=== PATIENT | female | born 1975 | race African-American/Black ===

== ENCOUNTER 2017-01-12 10:10 | Emergency (ER) | payer OTHER ==
[~2017-01-12] VITALS: Ht 162.6 cm; Wt 100.2 kg
[~2017-01-12 10:10] MED LIST: ACETAMINOPHEN-1 EAC1 PO; ALPRAZOLAM 0.0.25 M1 PO; ALPRAZOLAM 0.50.5 MG; ALPRAZOLAM 0.50.5 MG PO; ALPRAZOLAM ER1 MG PO; AMBIEN 5 MG TABL5 M1 PO; ASPIR 8181 MG PO; ATIVAN1 MG PO; CIPROFLOXACIN500 M1 PO; COLACE 100 MG100 MG PO; ENDOCET 5-3251 EACH PO; FLEXERIL PO; HEPARIN SO5000 UNIT1 SUBQ; IBUPROFEN 600600 M1 PO; IBUPROFEN 800800 M1 PO; LAMICTAL100 MG PO; LIORESAL 10 MG10 MG; MEDROXYPROGESTER5 MG; MIRALAX255 GM PO; MOBIC15 MG; MOOD STABILIZER; NAPROSYN500 MG PO; NEURONTIN 300300 M1; NOHOMEMEDICATIONS; NORCO 5-325 TA1 EACH PO; ONDANSETRON HCL4 M2; OXYCONTIN10 M1 PO; PENICILLIN V P500 MG PO; PENICILLIN VK250 MG PO; PERCOCET 5-3251 EACH PO; PERCOCET 7.5-31 EACH PO; PHENERGAN 25 MG25 M1 PO; PREDNISONE 20 M20 MG PO; SEROQUEL 100 M100 M2 PO; SEROQUEL XR 30300 M1 PO; SEROQUEL200 MG; TYLENOL325 MG PO; ULTRAM 50MG TAB50 MG PO; WELLBUTRIN XL150 M1 PO; WELLBUTRIN XL300 M1 PO; XANAX 0.5 MG0.5 M1 PO; XANAX 1 MG TABLE1 MG PO; XANAX1 MG; ZOFRAN ODT4 MG PO; ZOFRAN4 MG PO
[2017-01-12 11:40] LABS: URINE BILIRUBIN NEGATIVE (Negative); URINE BLOOD 2+ (Negative); URINE COLOR YELLOW; URINE GLUCOSE-RANDOM* NEGATIVE (Negative); URINE KETONES NEGATIVE (Negative); URINE NITRITE NEGATIVE (Negative); URINE PROTEIN (DIPSTICK) NEGATIVE (Negative); URINE UROBILINOGEN 0.2 E.U./dl (0.2-1.0)
[2017-01-12 12:33] LABS: CASTS None Seen /LPF (None Seen); CRYSTALS None Seen /LPF (None Seen); SQUAMOUS 4-10 Moderate /LPF (0-3); URINE RBC 3-10 Few /HPF (0-2); URINE WBC 6-15 Few /HPF (0-5)
[2017-01-12 12:34] LABS: BACTERIA None Seen /HPF (None Seen)
[2017-01-12] MEDS ORDERED: KEFLEX500 MG PO (12:37)
[2017-01-12 14:28] VITALS: BP 127/89
== END 2017-01-12 14:30 | disposition home or self-care (01) ==
LOC: ER 10:10
PROVIDERS: Physician Assistant
DX: T83.038A Leakage of other urinary catheter, initial encounter (principal); N39.0 Urinary tract infection, site not specified; E78.00 Pure hypercholesterolemia, unspecified; F17.210 Nicotine dependence, cigarettes, uncomplicated; Z88.6 Allergy status to analgesic agent; Z88.5 Allergy status to narcotic agent; Z88.8 Allergy status to other drugs, medicaments and biological substances; X58.XXXA Exposure to other specified factors, initial encounter; Y93.89 Activity, other specified; Y92.89 Other specified places as the place of occurrence of the external cause; Y99.8 Other external cause status

== ENCOUNTER 2017-09-08 01:30 | Emergency (ER) | payer OTHER ==
[~2017-09-08] VITALS: Ht 162.6 cm; Wt 88.9 kg
[~2017-09-08 01:30] MED LIST changes: +KEFLEX500 MG PO
[2017-09-08 07:27] VITALS: BP 140/87
[2018-01-29] MEDS ORDERED: ALPRAZOLAM 0.50.5 M1 PO (10:02)
[2018-01-29] MEDS ORDERED: KEPPRA 500 MG500 M1 PO (10:02)
== END 2017-09-08 07:20 | disposition home or self-care (01) ==
LOC: ER 01:30
DX: Z76.0 Encounter for issue of repeat prescription (principal); G89.29 Other chronic pain; G82.20 Paraplegia, unspecified; G37.3 Acute transverse myelitis in demyelinating disease of central nervous system; E78.00 Pure hypercholesterolemia, unspecified; F17.210 Nicotine dependence, cigarettes, uncomplicated; Z88.6 Allergy status to analgesic agent; Z88.5 Allergy status to narcotic agent; Z88.8 Allergy status to other drugs, medicaments and biological substances

== ENCOUNTER 2017-10-21 10:36 | Inpatient (IN) | payer OTHER ==
[~2017-10-21] VITALS: Ht 162.6 cm; Wt 99.0 kg
--- NOTE | ~2017-10-21 | HC ---
[facility] [place] [address] CONSULTATION Name: ISRRAEL CALDWELL Room #: 423-1 [facility] IN M.R.#: [id number] Admission: 10/21/17 Attend Phys: Rowan Scales MD Discharge: 10/30/17 Date of : 71 Report #: [id number] THIS REPORT FOR: //name// CC: Eduardo Scales DATE OF SERVICE: 10/22/2017 HISTORY OF PRESENT ILLNESS: This is a 42-year-old female patient who indicates that she was in [facility] 2 years ago. Her symptoms were that she became paraplegic and lost control over the bladder. She was diagnosed with transverse myelitis. She claims that no neurologist or neurosurgeon saw her at that time. That would be very unusual. She indicates she has been same for about 2 years and she has an appointment with a [facility] neurologist for transverse myelitis. I do not have any record from [facility] on this patient. She has multiple pain management problems and she goes to pain management for that. REVIEW OF SYSTEMS: Indicate that she has a history of transverse myelitis. She claims she has a transverse myelitis from L1-L5. The whole history does not make sense because there is no spinal cord at L5. She is on multiple pain medications. She is also on multiple psychiatric medications. All of it becomes very difficult to evaluate this patient. I carried out the 14-point review of system the best I can in this patient and this was a relevant 14-point review of systems. PAST MEDICAL HISTORY: Positive for transverse myelitis. FAMILY HISTORY: Negative for any early age stroke. SOCIAL HISTORY: She does not smoke or drink alcohol. PHYSICAL EXAMINATION: The patient's examination indicate she is alert and responsive. Her speech, concentration, fund of knowledge and memory is at her baseline. Cranial nerve examination 2-12 is unremarkable. She has normal strength, sensation and reflexes in both upper extremities. She has no movement and no sensation in the lower extremities, but the best I can tell reflexes may be present slightly. She does not relax to tell for sure. There is no papilledema. She has wounds in the lower extremities. Pulses are difficult to feel. She is a well-built individual who does not have any dysmorphic features of eyes, ears and face. Cardiac examination appears unremarkable. She does not appear to have any respiratory difficulty. Blood pressure is 106/63, respirations 18, pulse is 109 and temperature is 98.6. LABORATORY DATA: Indicated normal white count. [address] [address] CONSULTATION Name: ISRRAEL CALDWELL Room #: [address] [place] [address]#: [id number] Admission: 10/21/17 Attend Phys: Rowan Scales MD Discharge: 10/30/17 Date of : 71 Report #: [id number] IMPRESSION: Neurological consultation is requested to evaluate the patient for transverse myelitis. I do not have any of her record from [facility]. I will ask for the record. It will be very unusual if she did not see any neurologist there. Furthermore, she has an appointment with a neurologist in a tertiary care center where these patients should be managed. I encouraged her to keep that appointment. She also says that she has transverse myelitis from L1-L5. That history is wrong because there is no spinal cord at L5 until she has tethered cord. So this whole history is very unusual. I will await further records from [facility] and my recommendation is that she should keep her appointment with the neurologist at tertiary care center. Thank you very much for this referral. <ELECTRONICALLY SIGNED> By: Soham Martins MD 11/01/17 1145 1553 0408 Soham Martins MD /nt
--- NOTE | ~2017-10-21 | HC ---
[facility] [place] [address] CONSULTATION Name: ISRRAEL CALDWELL Room #: 423-1 ADM IN M.R.#: [id number] Admission: 10/21/17 Attend Phys: Rowan Scales MD Discharge: Date of : 71 Report #: [id number] THIS REPORT FOR: //name// CC: Eduardo Scales CHIEF COMPLAINT: Right heel wound. HISTORY OF PRESENT ILLNESS: The patient is a pleasant 42-year-old female seen today for evaluation of her right lower extremity. The patient reports a history of heel ulcerations and wounds. She developed a neuropathic pressure induced ulcer and a history of transverse myelitis and paraplegia of several years' duration. The patient reports that she lives at home alone with a caregiver. She has a motorized wheelchair and has recently had been admitted in a rehabilitation facility and then discharged to home. The patient has been using lower extremity boots to try and protect her soft tissues and has had hospitalizations at other hospitals and more recently presented to the Emergency Room at [facility]. She has seen a variety of physicians for wound care management. PAST MEDICAL HISTORY: Significant for paraplegia and transverse myelitis, obesity, neurogenic bladder with indwelling Doran, history of lumbar spondylosis, history of kidney nephrolithiasis, hypercholesterolemia and tobaccoism. ALLERGIES: PER THE CHART, VICODIN, LORAZEPAM, MORPHINE, OMEPRAZOLE, OXYCODONE AND COMPAZINE. CURRENT MEDICATIONS: Please see current MAR. PHYSICAL EXAMINATION: GENERAL: The patient is alert, oriented, answering questions appropriately and is very pleasant. VITAL SIGNS: Most recent vitals: Temperature 36.6, pulse 71, respirations 20, BP 128/80 and weight 99 kilos. EXTREMITIES: Examination of the right lower extremity reveals skin breakdown to the level of the dermis about the heel. The dressing had been removed, yellowish discharge is noted in this area. There appears to be no obvious breakthrough or breakdown of the dermis into the subcutaneous fascial tissues. Her Achilles does not appear exposed. No exposed bone is noted. This extends more distally based on to the plantar surface of the foot. Mild swelling is noted of the foot. She reports little if any sensation to light touch and has no intact motor function in the lower extremities. She does have some mild intermittent muscular activity that is spontaneous. LABORATORY DATA: Reveals a white count of 7.2. Foot cultures positive for Klebsiella pneumoniae and MRSA. Blood cultures were read as no growth. [address] [address] CONSULTATION Name: ISRRAEL CALDWELL Room #: 423-1 [facility] IN [facility]#: [id number] Admission: 10/21/17 Attend Phys: Rowan Scales MD Discharge: Date of : 71 Report #: [id number] IMAGING: Three views of the foot reveals diffuse swelling. No obvious findings of osteomyelitis. MRI of the foot reveals chronic osteomyelitis of the posterior process of the calcaneus with a large area of involucrum, surrounding sequestrum. The chronic osteomyelitis measures 2.8 cm x 1.7 cm x 2.2. Lower extremity Doppler is read as no significant arterial occlusive disease. IMPRESSION: 1. 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 2. MRSA and Klebsiella pneumoniae positive wound. PLAN: The patient is initially been seen by Infectious Disease as well as the wound team. We have reviewed her pressure-induced ulcers and the need to be diligent with protection of her soft tissues especially in the lower extremities and any seated weightbearing type surface to reduce this in the future. We have discussed treatment of her skin breakdown could be as simple as trying to debride the wound and ulcer versus a more extensive surgery, which could entail removal of portion of the calcaneus that is suspected to be infected. We discussed with more removal of the calcaneus. We discussed with her calcaneal osteomyelitis that this can always persist or be resistant to treatment. We discussed that if she had more difficulty in this in the future or if the infection spreads that one may need to consider amputation in the future. Hopefully, this can be avoided. Discussed with the patient that we could consider this operative debridement on Sunday afternoon and would like to discuss this further with Infectious Disease as well. They can continue to manage her antibiotic course and intraoperative cultures could be obtained as well. Questions were encouraged and all were answered. The patient demonstrated an understanding of her treatment choices and wished to proceed with an operative debridement of her foot. <ELECTRONICALLY SIGNED> By: Ganga Bay MD 10/26/17 1514 1352 0055 Ganga Bay MD /nt
--- NOTE | ~2017-10-21 | S ---
[facility] [place] [address] SURGICAL PATH RPT PROCEDURE Name: STEPHIE CALDWELL Room #: 423-1 ADM IN M.R.#: [id number] Admission: 10/21/17 Date of : 71 Discharge: Report #: [id number] Path Case #: [id number] PATHOLOGY REPORT COLLECTION DATE: 10/26/2017 RECEIVED DATE: 10/29/2017 SUBMITTING PHYS: Dr. Ganga Matthew OTHER PHYS: Dr. Rowan Padilla SPECIMEN(S) RECEIVED: A.Bone right calcaneus * * * * * * * * * * * * FINAL DIAGNOSIS: Bone right calcaneus, excision: - Reactive and remodeled bone parenchyma with few plasma cells within fibrotic marrow space compatible with chronic inflammation. (IUV:db; 10/30/2017) PATHOLOGIST: Vicky Severino M.D. REPORT ELECTRONICALLY SIGNED BY: Vicky Severino M.D. DATE/TIME: 10/30/2017 15:41 * * * * * * * * * * * * GROSS PATHOLOGY: The specimen is received in formalin labeled "Stephie Caldwell bone right calcaneus". Received is a dome-shaped segment of light carson bone with a slight amount of attached white-carson fibrous tissue measuring 4.7 x 3.4 x 2.2 cm in greatest dimensions. The specimen is submitted representatively in cassette A1, following decalcification. (CAA; 10/29/2017) CLINICAL HISTORY: Right heel wound INITIAL CPT CODE(S): A; 95252, 66211 Professional services performed by [facility] at [facility] [address] [place], [place] [address] Technical services performed by [facility] at [address] [place] [address], [address] [address]. [facility] [address] [place] [address] SURGICAL PATH RPT PROCEDURE Name: STEPHIE CALDWELL Room #: 423-1 ADM IN M.R.#: [id number] Admission: 10/21/17 Date of : 71 Discharge: Report #: [id number] Path Case #: [id number] [facility] [address] [address] PHONE: [phone] DIRECTOR: Federico Hdez M.D. * * * END OF REPORT * * *
--- NOTE | ~2017-10-21 | HC ---
[facility] [place] [address] CONSULTATION Name: ISRRAEL CALDWELL Room #: 423-1 ADM IN M.R.#: [id number] Admission: 10/21/17 Attend Phys: Rowan Scales MD Discharge: Date of : 71 Report #: [id number] THIS REPORT FOR: //name// CC: Eduardo Scales DATE OF SERVICE: 10/21/2017 REASON FOR CONSULTATION: Significant right heel neuropathic ulcer and multiple wounds of anterior thighs and left flank in a patient with transverse myelitis and paraplegia. HISTORY OF PRESENT ILLNESS: The patient is an unfortunate 42-year-old woman who lives at home with a motorized wheelchair and several health care supporters and home health, who had been in a rehabilitation facility for approximately the last month, had been recently discharged home. There is some discontinuity in her home care and the patient's wounds of the lower body, which deteriorated. She presented to the Emergency Room at [facility] and was found to have multiple wounds of her thighs, left flank, foot, which required cleansing and hospitalized care. Wound Care is consulted. PAST MEDICAL HISTORY: 1. Transverse myelitis with paraplegia. 2. Obesity. 3. Neurogenic bladder with indwelling Doran catheter. 4. History of L1-L5 ruptured disk. 5. History of kidney stones. 6. Hypercholesterolemia. 7. Tobaccoism. ALLERGIES: VICODIN, LORAZEPAM, MORPHINE, OMEPRAZOLE, OXYCODONE, COMPAZINE. MEDICATIONS: Wellbutrin, Flexeril, OxyContin, MiraLax, Ambien, Neurontin Colace, Xanax. REVIEW OF SYSTEMS: The patient is paraplegic, gets around in a motorized wheelchair. She has neurogenic bladder, chronic indwelling Doran catheter. PHYSICAL EXAMINATION: GENERAL: Shows a very alert, articulate, conversant, pleasant, obese -[place] woman, who is paraplegic. VITAL SIGNS: She is afebrile. Vital signs are stable. HEENT: Mucous membranes are moist. NECK: Supple. LUNGS: Respirations are unlabored. ABDOMEN: Obese and soft. Doran bladder catheter is present. [facility] [address] [place] [address] CONSULTATION Name: ISRRAEL CALDWELL Room #: [facility] ADM IN .R.#: [id number] Admission: 10/21/17 Attend Phys: Rowan Scales MD Discharge: Date of : 71 Report #: [id number] EXTREMITIES: Lower extremity exam shows healed wounds of the anterior thighs, which are scattered primarily to the anterior thighs. Most of these appear to be completely healed are atypical in appearance. Examination of the left hip and flank shows a 2 x 2 cm open skin wound, which appears to be partial thickness. There is a new blister present and several other smaller scattered wounds, which are superficial. Again, these are atypical in appearance and not appear to be typical pressure wounds. Examination of the distal extremities shows crusted, dry deep tissue injuries of the left heel, which appear to be stable. Examination of the right foot shows a significant neuropathic pressure ulcer of the right plantar heel measuring approximately 1-1.5 cm in dimension with some central necrosis. This appears to be a stage 4 wound with a suspicion for osteomyelitis. IMPRESSION: 1. Obesity. 2. Tobaccoism. 3. Transverse myelitis with paraplegia. 4. Neurogenic bladder with indwelling Doran catheter. 5. History of atypical spontaneously appearing ulcerated skin lesions of the lower extremities, primarily limited to the thighs. Wound of the thighs appear to be almost all entirely healed. 6. Open ulcerative skin wounds of the left hip and flank, again atypical in appearance, possibly related to her transverse myelitis. 7. Deep tissue injury of left heel, stable. 8. Neuropathic pressure ulcer of the right plantar heel, rule out osteomyelitis. PLAN: IV antibiotics. Infectious Disease consultation. Wound culture of the right heel done. Silvadene and Xeroform dressings to the open wound of the left hip and flank and the right foot. Offload feet with foam boots. Offload with low air loss mattress. Wound care team, Nguyen Broussard, wound care nurse will follow as well as Dr. Stark. MRI ordered for tomorrow to rule out osteomyelitis. <ELECTRONICALLY SIGNED> By: Anthony Sandoval MD 10/25/17 1149 1752 0033 Anthony Sandoval MD /nt
--- NOTE | ~2017-10-21 | O ---
[facility] [place] [address] OPERATIVE REPORT Name: ISRRAEL CALDWELL Room #: [facility] IN M.R.#: [id number] Admission: 10/21/17 Attend Phys: Rowan Scales MD Discharge: 10/30/17 Date of : 71 Report #: [id number] THIS REPORT FOR: //name// CC: Eduardo Scales DATE OF SERVICE: 10/26/2017 PREOPERATIVE DIAGNOSIS: Right heel ulcer with osteomyelitis of the right calcaneus. POSTOPERATIVE DIAGNOSIS: Right heel ulcer with osteomyelitis of the right calcaneus. PROCEDURE PERFORMED: Irrigation and debridement of right heel ulcer and partial calcanectomy for osteomyelitis. SURGEON: Ganga Bay MD ADVERTISING STRATEGIST: Glenda Jeffrey PA-C ANESTHESIA: General per endotracheal tube. FLUIDS: 800 mL crystalloid. ESTIMATED BLOOD LOSS: Approximately 5 mL. TOURNIQUET TIME: Approximately 40 minutes. SPECIMENS: Right calcaneus. DESCRIPTION OF PROCEDURE: After proper identification of the patient and the operative site in preoperative holding area, the operative site was signed by myself. The patient had been on antibiotics preoperatively. We discussed the patient's wound as well as the underlying osteomyelitis with the patient as well as Dr. Jose Elias Stark of Infectious Disease. We reviewed the MRI findings. The patient agreed to the above procedure. She was then brought back to the operative suite. After induction of satisfactory general endotracheal anesthesia, she was carefully positioned in the prone position. The tourniquet had been applied to the thigh and the right lower extremity was carefully sterilely prepped and draped in the usual manner. The patient had a full-thickness heel wound with surrounding areas of skin breakdown that extended into the more distal hindfoot. A straight midline incision was made posteriorly and the wounds were ellipsed out with sharp debridement based on the MRI findings of osteomyelitis as well as the involucrum. Careful subperiosteal dissection was performed around the calcaneus until an oscillating saw could be [address] [address] OPERATIVE REPORT Name: ISRRAEL CALDWELL Room #: 423-1 [facility] IN M.R.#: [id number] Admission: 10/21/17 Attend Phys: Rowan Scales MD Discharge: 10/30/17 Date of : 71 Report #: [id number] utilized to remove a portion of the calcaneus and this was then submitted to pathology for culture and sensitivities as well as histologic exam. Edges of the calcaneus were carefully rongeured to reduce any prominences on the soft tissue. This area was thoroughly irrigated with antibiotic irrigant. This allowed for the wound to be closed primarily without any undue tension and the skin edges and flaps otherwise appeared to be viable. This was closed with 2-0 nylon in a simple ftifmd-el-esfue manner. Sterile dressing was applied. She was then awakened and transferred to the recovery room in stable condition. <ELECTRONICALLY SIGNED> By: Ganga Bay MD 10/31/17 0729 1707 1805 Ganga Bay MD /nt
--- NOTE | ~2017-10-21 | D ---
[facility] [place] [address] DISCHARGE SUMMARY Name: ISRRAEL CALDWELL Room #: 423-1 [facility] IN M.R.#: [id number] Admission: 10/21/17 Attend Phys: Rowan Scales MD Discharge: 10/30/17 Date of : 71 Report #: [id number] THIS REPORT FOR: //name// CC: Eduardo Scales DATE OF SERVICE: 10/30/2017 FINAL DIAGNOSES: 1. Osteomyelitis and wound of the right heel. 2. Multiple skin wounds. 3. Chronic transverse myelitis. 4. Paraplegia. 5. Chronic pain syndrome. PROCEDURES: Surgical debridement of the right heel. HOSPITAL COURSE: The patient is admitted with multiple wounds and infected right heel. Ultimately with ID and Ortho input the plan was for surgical debridement. Please see that operative note. The other superficial areas were treated symptomatically by the Wound Care Team. Ultimately, the plan was for prolonged IV antibiotic course. Other home medications were continued including her chronic pain regimen including the OxyContin and breakthrough Dilaudid. She was using alprazolam to help control spasm of the lower legs along with anxiety. She had no side effect of her medications during her stay. DISPOSITION: She will be discharged to home with her in-home caregiver along with home health to manage wounds and IV antibiotics. She would be on Rocephin and vancomycin with twice a week lab work by home health to be sent to Dr. Stark and Dr. Daniel. Follow up with those both in a week and wound care center. She has requested a referral for outpatient pain management to [place]. She has OxyContin 10 mg twice a day, Dilaudid 4 mg q.6 hours p.r.n., Baclofen 10 mg q.i.d., Xanax 1 mg q.i.d. as needed. <ELECTRONICALLY SIGNED> By: Sunday Sanchez MD 11/01/17 0957 1248 1300 Sunday Sanchez MD /nt
--- NOTE | ~2017-10-21 | H ---
[facility] [place] [address] HISTORY AND PHYSICAL Name: ISRRAEL CALDWELL Room #: 423-1 ADM IN M.R.#: [id number] Admission: 10/21/17 Attend Phys: Rowan Scales MD Discharge: Date of : 71 Report #: [id number] THIS REPORT FOR: //name// CC: Eduardo Scales DATE OF SERVICE: 10/21/2017 CHIEF COMPLAINT: Right heel wound. HISTORY OF PRESENT ILLNESS: The patient is a 42-year-old female with a history of transverse myelitis and paraplegia who was brought to the Emergency Room for evaluation of multiple wounds. She was just released from the alf facility she reports about a week ago and her home health nurse was reporting a wound to the right heel. She told the patient was "not looking good" and recommended she seek hospital care for a new treatment orders. She is also found to have multiple excoriated or pressure type wounds across the pelvis and torso as well. The patient says her caregiver through Medicaid also called sick the last 3 days and was unable to come to the house to help her. It was reported in ER that she was incontinent of fecal matter, which was contaminating her skin and wounds with dried old material. PAST MEDICAL HISTORY: Transverse myelitis. She has an L1-L5 disk rupture, chronic pain syndrome. PAST SURGICAL HISTORY: Unknown. FAMILY HISTORY: Noncontributory. SOCIAL HISTORY: She lives at home. Denies chronic alcohol or tobacco use. ALLERGIES: ACETAMINOPHEN, HYDROCODONE, LORAZEPAM, MORPHINE, OMEPRAZOLE, COMPAZINE. MEDICATIONS: Wellbutrin, Flexeril, OxyContin, MiraLax, Ambien, gabapentin, baclofen, Colace, Xanax. REVIEW OF SYSTEMS: She denies headache, chest pain, shortness of breath, abdominal pain, nausea, vomiting, constipation, dysuria. She complains of spastic pain of her legs. PHYSICAL EXAMINATION: VITAL SIGNS: Temperature 37, pulse 109, respirations 18, blood pressure 106/63, O2 sat 100% on room air. GENERAL: She is awake and alert, in no distress. LUNGS: Clear. [facility] [address] [place] [address] HISTORY AND PHYSICAL Name: ISRRAEL CALDWELL Room #: 423-1 ADM IN [facility].#: [id number] Admission: 10/21/17 Attend Phys: Rowan Scales MD Discharge: Date of : 71 Report #: [id number] HEART: Regular. ABDOMEN: Soft, normoactive bowel sounds. EXTREMITIES: No cyanosis, clubbing or edema. There is a foul smelling wound to the right heel. NEUROLOGIC: She has spastic paralysis of the lower legs. LABORATORY DATA: Reviewed. ASSESSMENT: 1. Wound of the right heel. 2. Multiple wounds of the pelvis and sacrum. 3. Transverse myelitis. 4. Chronic pain syndrome. PLAN: Continue medications along with antibiotics, wound care. Multiple consultants. Her neurologic condition is probably chronic. She does follow at [facility] as an outpatient, so I do not anticipate a major change to her pain regimen. She has described increased spastic pain to her legs and we will use a short-term IV Dilaudid for now. There was some discrepancy when she was describing her home medication doses through ER and had reported a very large dose of baclofen which I do not believe would be appropriate or safe along with increased dose of OxyContin. It is unclear what her true regimen at home is. Ultimately, we would like to try to use the lowest dose as possible. I am going to recommend probably long-term care for her until her wounds are healed that she explore pain pump or baclofen pump as an outpatient through [facility] when she is healed, but it is not clear whether she would agree to a skilled care again. <ELECTRONICALLY SIGNED> By: Sunday Sanchez MD 10/23/17 0903 1240 1303 Sunday Sanchez MD /nt
[2017-10-21 10:47] VITALS: BP 161/104
[2017-10-21 12:12] LABS: ABSOLUTE NEUTROPHILS 6.6 thou/uL (1.4-8.2); BASOPHILS 0.7 % (0.0-2.0); EOSINOPHILS 0.5 % (0.0-3.0); HEMATOCRIT 37.5 % (37.0-47.0); HEMOGLOBIN 12.5 gm/dL (12.0-15.0); LYMPHOCYTES 18.6 % (24.0-44.0); MCH 28.4 pg (26.0-34.0); MCHC 33.4 g/dL (28.0-37.0); MCV 85.1 fL (80.0-100.0); MONOCYTES 4.7 % (1.0-8.0); PLATELET COUNT 292 thou/uL (150-400); POLYS 75.5 % (36.0-66.0); RBC 4.41 mil/uL (4.20-5.00); RDW 16.4 % (10.5-14.5); WBC 8.8 thou/uL (4.0-11.0)
[2017-10-21 12:30] LABS: ALBUMIN 2.9 g/dL (3.4-5.0); CALCIUM 9.2 mg/dL (8.5-10.1); CREATININE 0.7 mg/dL (0.6-1.0); TOTAL BILIRUBIN 0.2 mg/dL (<0.1-1.0); TOTAL PROTEIN 7.9 g/dL (6.4-8.2)
[2017-10-21 14:07] VITALS: BP 140/73
[2017-10-21 15:28] LABS: URINE BILIRUBIN NEGATIVE (Negative); URINE BLOOD 1+ (Negative); URINE CLARITY CLOUDY; URINE COLOR YELLOW; URINE GLUCOSE-RANDOM* NEGATIVE (Negative); URINE KETONES NEGATIVE (Negative); URINE LEUKOCYTES 3+ (Negative); URINE NITRITE POSITIVE (Negative); URINE PROTEIN (DIPSTICK) NEGATIVE (Negative); URINE SPECIFIC GRAVITY 1.015 (1.005-1.035); URINE UROBILINOGEN 0.2 E.U./dl (0.2-1.0)
[2017-10-21 15:36] LABS: CASTS None Seen /LPF (None Seen); CRYSTALS None Seen /LPF (None Seen); SQUAMOUS >10 Many /LPF (0-3); TRIPLE PHOSPHATE CRYSTALS >10 Many /LPF (None Seen)
[2017-10-21 15:37] LABS: AMORPHOUS PHOSPHATES Many /LPF (None Seen); BACTERIA >30 Many /HPF (None Seen); URINE RBC 0-2 Rare /HPF (0-2)
[2017-10-21 16:05] VITALS: BP 130/68
[2017-10-21] MEDS ORDERED: LIORESAL 10 MG10 MG PO (16:58)
[2017-10-21] MEDS ORDERED: AMBIEN 5 MG TABL5 M1 PO (17:00)
[2017-10-21] MEDS ORDERED: DILAUDID4 MG PO (17:03)
[2017-10-21 19:20] VITALS: BP 112/69
[2017-10-21 23:34] VITALS: BP 102/54
[2017-10-22 03:40] VITALS: BP 110/67
[2017-10-22 07:57] VITALS: BP 106/63
[2017-10-22 11:35] VITALS: BP 110/65
[2017-10-22 15:55] VITALS: BP 114/74
[2017-10-22 19:55] VITALS: BP 115/71
[2017-10-23 03:29] VITALS: BP 105/54
[2017-10-23 04:49] LABS: HEMATOCRIT 33.3 % (37.0-47.0); HEMOGLOBIN 10.9 gm/dL (12.0-15.0); MCH 28.3 pg (26.0-34.0); MCHC 32.9 g/dL (28.0-37.0); MCV 86.1 fL (80.0-100.0); RBC 3.87 mil/uL (4.20-5.00); RDW 16.2 % (10.5-14.5); WBC 7.2 thou/uL (4.0-11.0)
[2017-10-23 04:51] LABS: ALBUMIN 2.5 g/dL (3.4-5.0); CALCIUM 8.5 mg/dL (8.5-10.1); CREATININE 0.5 mg/dL (0.6-1.0); TOTAL BILIRUBIN 0.4 mg/dL (<0.1-1.0); TOTAL PROTEIN 6.5 g/dL (6.4-8.2)
[2017-10-23 04:57] LABS: POTASSIUM 4.7 mmol/L (3.5-5.1)
[2017-10-23 08:10] VITALS: BP 107/68
[2017-10-23 15:46] VITALS: BP 116/65
[2017-10-23 19:51] VITALS: BP 108/65
[2017-10-24 04:33] VITALS: BP 110/67
[2017-10-24 09:04] VITALS: BP 128/80
[2017-10-24 17:21] VITALS: BP 109/62
[2017-10-24 19:30] VITALS: BP 108/69
[2017-10-25 04:00] VITALS: BP 103/60
[2017-10-25 07:20] VITALS: BP 104/68
[2017-10-25 14:53] LABS: TSH 2.765 uIU/mL (0.358-3.740)
[2017-10-25 15:45] VITALS: BP 100/68
[2017-10-25 20:00] VITALS: BP 108/63
[2017-10-26] VITALS (10 sets, daily range): BP systolic 104–136; BP diastolic 59–87
[2017-10-26 01:09] LABS: LYME ANTIBODY SCREEN* <0.91 ISR (0.00-0.90)
[2017-10-27 04:39] VITALS: BP 91/56
[2017-10-27 06:29] LABS: HEMATOCRIT 36.1 % (37.0-47.0); HEMOGLOBIN 11.9 gm/dL (12.0-15.0)
[2017-10-27 06:38] LABS: POTASSIUM 4.4 mmol/L (3.5-5.1)
[2017-10-27 07:15] VITALS: BP 130/47; BP 99/60
[2017-10-27 15:00] VITALS: BP 85/43
[2017-10-27 16:24] VITALS: BP 95/49
[2017-10-27 20:00] VITALS: BP 110/43
[2017-10-28] VITALS: BP 92/55
[2017-10-28 04:00] VITALS: BP 87/52
[2017-10-28 08:52] VITALS: BP 112/64
[2017-10-28 16:55] VITALS: BP 125/69
[2017-10-28 19:14] VITALS: BP 98/53
[2017-10-29 04:10] VITALS: BP 101/60
[2017-10-29 07:25] VITALS: BP 106/73
[2017-10-29 10:09] LABS: ANA INTERPRETATION Negative (Negative)
[2017-10-29 15:11] LABS: SYPHILIS AB Negative (Negative)
[2017-10-29 15:47] VITALS: BP 122/64
[2017-10-29 19:00] VITALS: BP 110/78
[2017-10-30 03:40] VITALS: BP 104/65
[2017-10-30 07:38] VITALS: BP 98/57
[2017-10-30] MEDS ORDERED: NEURONTIN 300300 M1 PO ×2 (10:34→10:40)
[2017-10-30] MEDS ORDERED: XANAX1 MG PO (10:34)
[2017-10-30] MEDS ORDERED: DILAUDID4 MG PO (10:34)
[2017-10-30] MEDS ORDERED: WELLBUTRIN XL150 MG PO (10:34)
[2017-10-30] MEDS ORDERED: OXYCONTIN10 M1 PO (10:34)
[2017-10-30] MEDS ORDERED: WELLBUTRIN 100100 MG PO (10:34)
[2017-10-30] MEDS ORDERED: BACLOFEN 10MG T10 MG PO (10:34)
[2017-10-30] MEDS ORDERED: DILAUDID 4 MG TA4 M1 PO (10:39)
[2017-10-30 12:36] VITALS: BP 98/57
[2017-10-30 17:35] VITALS: BP 111/75
[2018-01-29] MEDS ORDERED: ALPRAZOLAM 0.50.5 M1 PO (10:02)
[2018-01-29] MEDS ORDERED: KEPPRA 500 MG500 M1 PO (10:02)
== END 2017-10-30 18:16 | disposition home health service (06) | DRG 503 ==
LOC: ER 10:36 → 4E 13:49 → EROBS 13:49 → 4E 14:44
PROVIDERS: Internal Medicine Geriatric Medicine; Nurse Practitioner; Physician Assistant Surgical; Psychiatry & Neurology Neuromuscular Medicine
PROC: 0QBL0ZZ Excision of Right Tarsal, Open Approach (ICD-10-PCS; principal; 2017-10-26)
PROC: 05HY33Z Insertion of Infusion Device into Upper Vein, Percutaneous Approach (ICD-10-PCS; 2017-10-29)
DX: M86.171 Other acute osteomyelitis, right ankle and foot (principal); E43 Unspecified severe protein-calorie malnutrition; G37.3 Acute transverse myelitis in demyelinating disease of central nervous system; G82.20 Paraplegia, unspecified; B95.62 Methicillin resistant Staphylococcus aureus infection as the cause of diseases classified elsewhere; B96.1 Klebsiella pneumoniae [K. pneumoniae] as the cause of diseases classified elsewhere; L89.610 Pressure ulcer of right heel, unstageable; E78.00 Pure hypercholesterolemia, unspecified; E66.9 Obesity, unspecified; N31.9 Neuromuscular dysfunction of bladder, unspecified; G89.4 Chronic pain syndrome; F17.210 Nicotine dependence, cigarettes, uncomplicated; Z87.442 Personal history of urinary calculi; Z79.899 Other long term (current) drug therapy; Z68.37 Body mass index [BMI] 37.0-37.9, adult; Z88.5 Allergy status to narcotic agent; Z88.8 Allergy status to other drugs, medicaments and biological substances
CPT/HCPCS: 10084; 27000; 50010; 50101; 50386; 50951; 56525; 57091; 62110; 62900; 70005

== ENCOUNTER 2018-02-17 08:03 | Inpatient (IN) | payer OTHER ==
[~2018-02-17] VITALS: Ht 165.1 cm; Wt 81.7 kg
--- NOTE | ~2018-02-17 | H ---
[facility] [place] [address] HISTORY AND PHYSICAL Name: ISRRAEL CALDWELL Room #: 355-P ADM IN M.R.#: [id number] Admission: 02/17/18 Attend Phys: Rowan Scales MD Discharge: Date of : 71 Report #: [id number] THIS REPORT FOR: //name// CC: FAM naomi De Neo Scales DATE OF SERVICE: 02/17/2018 CHIEF COMPLAINT: Confusion. HISTORY OF PRESENT ILLNESS: The patient was admitted to the Emergency Room yesterday with a change in mental status. 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 She recently was hospitalized for a similar complaint. She presented with altered mental status, confusion, was either hallucinating or talking to herself and she was not in her usual state. Last admission, the diagnosis was filled on benzodiazepine withdrawal. She had previously been on fairly high doses of narcotics through a pain clinic, I believe, from [place] and had been on high doses of Xanax and apparently, before the last admission, had run out of her medication for an unknown length of time. Her urine drug screen on the last visit was negative for opiates or benzodiazepines. She was seen by Neurology and Infectious Disease and had an episode of respiratory failure, requiring brief intubation, mechanical ventilation and as mentioned, ultimately the diagnosis filled on benzodiazepine withdrawal and a withdrawal seizure. Her family sent her back to the hospital with increasing complaints of talking to herself and they were concerned of worsening infection. PAST MEDICAL HISTORY: Lumbar disk rupture, transverse myelitis with persistent paraplegia and chronic urinary tract infections. She had osteomyelitis of the heel recently debrided and surgically treated. PAST SURGICAL HISTORY: As above. FAMILY HISTORY: Noncontributory. SOCIAL HISTORY: No reported alcohol use. Does have a smoking history. ALLERGIES: SHE REPORTS INTOLERANCE TO TYLENOL, HYDROCODONE, LORAZEPAM, MORPHINE, OMEPRAZOLE, OXYCODONE AND COMPAZINE. MEDICATIONS: It is unclear what she was taking at home, but presented with a list of Keppra 500 mg twice a day, Xanax 0.5 mg q. 8 hours p.r.n. and Wellbutrin-XL 150 mg a day. REVIEW OF SYSTEMS: She is unable to give a review. She just says "I've have [address] [address] HISTORY AND PHYSICAL Name: ISRRAEL CALDWELL Room #: 355-P [facility] IN M.R.#: [id number] Admission: 02/17/18 Attend Phys: Rowan Scales MD Discharge: Date of : 71 Report #: [id number] nowhere to go and I'm homeless". PHYSICAL EXAMINATION: VITAL SIGNS: Temperature 37.1, pulse 116, respirations 16 and blood pressure 128/82. GENERAL: She is awake and alert, resting in bed, in no distress. HEAD AND NECK: Unremarkable. LUNGS: Clear. HEART: Regular. ABDOMEN: Soft. Normoactive bowel sounds. EXTREMITIES: No edema. NEUROLOGIC: She is alert. She does answer basic questions. She is talking. LABORATORY DATA: Urine cultures pending. Other lab data revealed a normal white blood cell count with no left shift and a normal chemistry. Albumin 3.1. CT head was negative. ASSESSMENT: 1. Altered mental status. 2. Transverse myelitis. 3. Chronic paraplegia. PLAN: I will resume just low-dose medication at this point, including her Keppra, Xanax and her Wellbutrin. Urine drug screen will be ordered. Empiric antibiotics pending the urine culture. Social work to assist in placement issues. <ELECTRONICALLY SIGNED> By: Sunday Sanchez MD 02/19/18 0919 [id number] 1433 Sunday Sanchez MD /nt
--- NOTE | ~2018-02-17 | HC ---
[facility] [place] [address] CONSULTATION Name: ISRRAEL CALDWELL Room #: 355-P ADM IN M.R.#: [id number] Admission: 02/17/18 Attend Phys: Rowan Scales MD Discharge: Date of : 71 Report #: [id number] THIS REPORT FOR: //name// CC: FAM unknown Kenisha Larson Rowan Scales DATE OF SERVICE: 02/18/2018 CHIEF COMPLAINT: Coccyx and heel ulcerations. HISTORY OF PRESENT ILLNESS: This is a 42-year-old female patient with whom I am familiar from previous hospitalization. She has had prior right heel ulceration with osteomyelitis, has undergone surgical debridement. She is admitted to the hospital at this time with mental status changes. She is awake in her room, but very confused and unable to answer any questions coherently at this time. She does have a history of paraplegia secondary to transverse myelitis. She apparently has been hallucinating and talking to herself. She is clearly confused in her speech and is asking me to help her stand up. PAST MEDICAL HISTORY: History of positive transverse myelitis with paraplegia, chronic urinary tract infections, osteomyelitis of the right heel surgically debrided and closed. PAST SURGICAL HISTORY: As above. FAMILY HISTORY: Noncontributory. SOCIAL HISTORY: Positive for reported alcohol use and smoking. ALLERGIES: INCLUDE TYLENOL, HYDROCODONE, LORAZEPAM, MORPHINE, OMEPRAZOLE, OXYCODONE, AND COMPAZINE. MEDICATIONS: Include Keppra, Xanax, Wellbutrin-XL. REVIEW OF SYSTEMS: Unobtainable due to the patient's level of confusion. PHYSICAL EXAMINATION: VITAL SIGNS: At this time include pulse rate 114, and blood pressure of 146/97, temperature is 98.1, respiratory rate of 22. GENERAL: This is a chronically ill-appearing female patient appears to be in minimal distress. HEENT: Head is normocephalic. NECK: Supple. LUNGS: Clear. HEART: Regular. [address] [address] CONSULTATION Name: ISRRAEL CALDWELL Room #: [address] [place] [address] IN ..#: [id number] Admission: 02/17/18 Attend Phys: Rowan Scales MD Discharge: Date of : 71 Report #: [id number] ABDOMEN: Soft. Bowel sounds present. EXTREMITIES: Sacrococcygeal region demonstrates an unstageable pressure ulcer to the coccyx. It is covered with yellow fibrinous material. There is no obvious tunneling or undermining although the base is not visible through the fibrin and slough. The lower extremities demonstrate some callus on both heels, post-surgical changes involving the left heel are noted, some callusing material was pulled away, although this is mostly intact. NEUROLOGIC: The patient is awake. She is disoriented and confused. LABORATORY DATA: Includes sodium 135, potassium 4.1, chloride 26, BUN 8, creatinine 0.7, glucose 105, AST 13, lipase 75, total bilirubin 0.4, direct bilirubin 0.1, calcium is 9.3, alkaline phosphatase 156, ALT is 16, total protein 7.8, albumin 3.1. CLINICAL IMPRESSION: 1. Unstageable pressure ulcer of the sacrococcygeal region. 2. Paraplegia secondary to transverse myelitis. 3. Prior heel ulcerations, now with some residual callus. 4. History of osteomyelitis, right heel, status post calcaneal debridement and closure. RECOMMENDATIONS: At this point in time, the patient will be placed in PRAFO boots, recommend a low air loss mattress for pressure prophylaxis and q. 2 hour turning, repositioning, work on a moisturizer to her heels. We will recommend bordered foam to the coccyx. This may require some debridement. She is not amenable to any type of manipulation or procedure at this time. We will follow closely while here in the hospital. <ELECTRONICALLY SIGNED> By: Donaldo Guan MD 02/19/18 1758 [id number] Donaldo Guan MD /nt
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
--- NOTE | ~2018-02-17 | D ---
[facility] [place] [address] DISCHARGE SUMMARY Name: ISRRAEL CALDWELL Room #: 355-P [facility] IN M.R.#: [id number] Admission: 02/17/18 Attend Phys: Rowan Scales MD Discharge: 02/25/18 Date of : 71 Report #: [id number] THIS REPORT FOR: //name// CC: FAM unknown Kenisha Larson Rowan Scales DATE OF SERVICE: 02/25/2018 FINAL DIAGNOSES: 1. Medication withdrawal. 2. Delirium due to the above. 3. Chronic cystitis. 4. Chronic paraplegia. 5. Chronic transverse myelitis. HOSPITAL COURSE: The patient was admitted with confused encephalopathic state. Basic lab data was unremarkable and CT head. A urinalysis obtained, which was felt was contaminated as there were several organisms growing. However, empiric antibiotics were ordered. The ID Service followed her and treated her for infection. However, our opinion was that the infection was not the major source of her encephalopathy as she had no elevated white count or fever during her stay. The patient pulled the Doran catheter out, declined replacement. She was voiding okay and bladder scans were consistently less than 400 mL. Flomax was added. She was switched to oral antibiotics. Psychiatry Service followed her. Their impression was that her encephalopathy was related to Xanax withdrawal with the possibility of a seizure prior to admission. Gradually with just supportive measures her mental status cleared and stabilized. Elevated blood pressure and heart rate normalized. The last 3 hospital days she was awake and alert and appropriately close to her baseline. Dr. Hernandez did not recommend restarting the Wellbutrin due to the prior seizure. Ultimately, the recommendation was that the patient refrain from using any benzodiazepines in the future and narcotics as well. She was not being given prescriptions for either upon discharge. Ultimately, she needs to follow up with the pain clinic, neurology clinic and psychiatry clinic at [facility] to meet her needs. PHYSICAL EXAMINATION: GENERAL: On the day of discharge, she was awake and alert and oriented to place and situation. VITAL SIGNS: Stable. LUNGS: Clear. HEART: Regular. ABDOMEN: Soft, normoactive bowel sounds. EXTREMITIES: No edema. [facility] [address] [place] [address] DISCHARGE SUMMARY Name: ISRRAEL CALDWELL Room #: 355-P [facility] IN M.R.#: [id number] Admission: 02/17/18 Attend Phys: Rowan Scales MD Discharge: 02/25/18 Date of : 71 Report #: [id number] DISPOSITION: To be discharged to home with home health. Diet and activity as tolerated. Follow up at [place] as indicated. DISCHARGE MEDICATIONS: Only medications will be Omnicef for 5 more days, Flomax 0.4 mg daily, Coreg 3.125 mg twice a day, Keppra 500 mg b.i.d., Tylenol as needed. She is instructed to stop Wellbutrin, any narcotics and no further Xanax at this point. <ELECTRONICALLY SIGNED> By: Sunday Sanchez MD 02/27/18 1254 1352 1412 Sunday Sanchez MD /nt
[~2018-02-17 08:03] MED LIST changes: +ALPRAZOLAM 0.50.5 M1 PO; +BACLOFEN 10MG T10 MG PO; +DILAUDID 4 MG TA4 M1 PO; +DILAUDID4 MG PO; +KEPPRA 500 MG500 M1 PO; +LIORESAL 10 MG10 MG PO; +NEURONTIN 300300 M1 PO; +WELLBUTRIN 100100 MG PO; +WELLBUTRIN XL150 MG PO; +XANAX1 MG PO
[2018-02-17 08:04] VITALS: BP 153/99
[2018-02-17 08:36] LABS: URINE BILIRUBIN NEGATIVE (Negative); URINE BLOOD 3+ (Negative); URINE CLARITY CLEAR; URINE COLOR YELLOW; URINE GLUCOSE-RANDOM* NEGATIVE (Negative); URINE KETONES NEGATIVE (Negative); URINE LEUKOCYTES-REFLEX 3+ (Negative); URINE NITRITE-REFLEX POSITIVE (Negative); URINE PROTEIN (DIPSTICK) NEGATIVE (Negative); URINE UROBILINOGEN 0.2 E.U./dl (0.2-1.0)
[2018-02-17 08:42] LABS: BACTERIA-REFLEX >30 Many /HPF (None Seen); CASTS None Seen /LPF (None Seen); CRYSTALS None Seen /LPF (None Seen); SQUAMOUS 0-3 Few /LPF (0-3); URINE WBC-REFLEX >25 Many /HPF (0-5)
[2018-02-17 10:33] LABS: ABSOLUTE NEUTROPHILS 5.3 thou/uL (1.4-8.2); BASOPHILS 0.5 % (0.0-2.0); EOSINOPHILS 2.1 % (0.0-3.0); HEMATOCRIT 31.9 % (37.0-47.0); HEMOGLOBIN 10.5 gm/dL (12.0-15.0); LYMPHOCYTES 25.2 % (24.0-44.0); MCH 27.7 pg (26.0-34.0); MCV 84.1 fL (80.0-100.0); MONOCYTES 6.6 % (1.0-8.0); PLATELET COUNT 333 thou/uL (150-400); POLYS 65.6 % (36.0-66.0); RDW 17.6 % (10.5-14.5)
[2018-02-17 10:39] LABS: CALCIUM 9.3 mg/dL (8.5-10.1); CREATININE 0.7 mg/dL (0.6-1.0); POTASSIUM 4.1 mmol/L (3.5-5.1)
[2018-02-17 10:45] LABS: ALBUMIN 3.1 g/dL (3.4-5.0); DIRECT BILIRUBIN 0.1 mg/dL (<0.1-0.3); TOTAL BILIRUBIN 0.4 mg/dL (<0.1-1.0); TOTAL PROTEIN 7.8 g/dL (6.4-8.2)
[2018-02-17 13:21] VITALS: BP 153/99
[2018-02-17 16:15] VITALS: BP 166/100
[2018-02-17 19:28] VITALS: BP 159/100
[2018-02-17 23:38] VITALS: BP 173/99
[2018-02-18 04:20] VITALS: BP 132/87
[2018-02-18 08:17] VITALS: BP 127/81
[2018-02-18 11:42] VITALS: BP 128/82
[2018-02-18 16:06] LABS: AMP/METHAMP Negative (Negative); BARBITURATES Negative (Negative); BENZODIAZEPINES Negative (Negative); COCAINE Negative (Negative); METHADONE Negative (Negative); OPIATES POSITIVE (Negative); PCP Negative (Negative)
[2018-02-18 16:30] VITALS: BP 167/100
[2018-02-18 19:15] VITALS: BP 146/97
[2018-02-18 23:42] VITALS: BP 154/99
[2018-02-19 04:05] VITALS: BP 141/93
[2018-02-19 06:19] LABS: HEMATOCRIT 34.1 % (37.0-47.0); MCHC 32.4 g/dL (28.0-37.0); MCV 83.2 fL (80.0-100.0); RBC 4.1 mil/uL (4.20-5.00); WBC 9.9 thou/uL (4.0-11.0)
[2018-02-19 06:34] LABS: CALCIUM 8.8 mg/dL (8.5-10.1); CREATININE 0.7 mg/dL (0.6-1.0); POTASSIUM 3.6 mmol/L (3.5-5.1)
[2018-02-19 08:58] VITALS: BP 145/94
[2018-02-19 12:12] VITALS: BP 144/92
[2018-02-19 15:32] VITALS: BP 125/87
[2018-02-19 19:40] VITALS: BP 136/74
[2018-02-20 03:25] VITALS: BP 144/95
[2018-02-20 07:54] VITALS: BP 143/94
[2018-02-20 11:45] VITALS: BP 143/87
[2018-02-20 15:40] VITALS: BP 138/68
[2018-02-20 19:28] VITALS: BP 129/86
[2018-02-21] VITALS (7 sets, daily range): BP systolic 108–144; BP diastolic 70–91
[2018-02-21 07:47] LABS: HEMATOCRIT 32.3 % (37.0-47.0); HEMOGLOBIN 10.7 gm/dL (12.0-15.0); MCH 27.5 pg (26.0-34.0); MCV 83.3 fL (80.0-100.0); RBC 3.87 mil/uL (4.20-5.00); RDW 17.1 % (10.5-14.5); WBC 6.7 thou/uL (4.0-11.0)
[2018-02-21 08:05] LABS: ALBUMIN 3.1 g/dL (3.4-5.0); CALCIUM 9.4 mg/dL (8.5-10.1); CREATININE 0.6 mg/dL (0.6-1.0); POTASSIUM 3.5 mmol/L (3.5-5.1); TOTAL BILIRUBIN 0.4 mg/dL (<0.1-1.0); TOTAL PROTEIN 7.6 g/dL (6.4-8.2)
[2018-02-22 04:37] VITALS: BP 95/66
[2018-02-22 07:52] VITALS: BP 113/73
[2018-02-22 12:08] VITALS: BP 111/75
[2018-02-22 15:45] VITALS: BP 126/78
[2018-02-22 19:51] VITALS: BP 123/90
[2018-02-23 03:52] VITALS: BP 104/75
[2018-02-23 07:48] VITALS: BP 119/76
[2018-02-23 11:50] VITALS: BP 117/72
[2018-02-23 16:59] VITALS: BP 120/76
[2018-02-23 19:30] VITALS: BP 115/75
[2018-02-24 04:15] VITALS: BP 116/77
[2018-02-24 07:16] VITALS: BP 131/80
[2018-02-24 09:22] VITALS: BP 131/80
[2018-02-24 11:27] VITALS: BP 118/73
[2018-02-24 15:25] VITALS: BP 123/77
[2018-02-24 19:45] VITALS: BP 116/78
[2018-02-25 04:00] VITALS: BP 124/83
[2018-02-25 08:05] VITALS: BP 117/76
[2018-02-25 11:36] VITALS: BP 119/79
[2018-02-25] MEDS ORDERED: CARVEDILOL3.125 MG PO (13:42)
[2018-02-25] MEDS ORDERED: CEFDINIR300 MG PO (13:42)
[2018-02-25] MEDS ORDERED: FLOMAX0.4 MG PO (13:42)
== END 2018-02-25 16:08 | disposition home health service (06) | DRG 70 ==
LOC: ER 08:03 → EROBS 11:21 → 3W 11:21
PROVIDERS: Emergency Medicine; Internal Medicine Geriatric Medicine
DX: G93.41 Metabolic encephalopathy (principal); L89.153 Pressure ulcer of sacral region, stage 3; E46 Unspecified protein-calorie malnutrition; L97.119 Non-pressure chronic ulcer of right thigh with unspecified severity; F19.931 Other psychoactive substance use, unspecified with withdrawal delirium; N30.90 Cystitis, unspecified without hematuria; G82.20 Paraplegia, unspecified; G37.3 Acute transverse myelitis in demyelinating disease of central nervous system; Z87.440 Personal history of urinary (tract) infections; E78.00 Pure hypercholesterolemia, unspecified; F17.210 Nicotine dependence, cigarettes, uncomplicated; N31.9 Neuromuscular dysfunction of bladder, unspecified; E66.9 Obesity, unspecified; L89.322 Pressure ulcer of left buttock, stage 2; L89.312 Pressure ulcer of right buttock, stage 2; Z68.30 Body mass index [BMI] 30.0-30.9, adult; Z79.899 Other long term (current) drug therapy; Z88.8 Allergy status to other drugs, medicaments and biological substances; Z88.6 Allergy status to analgesic agent
CPT/HCPCS: 10879

== ENCOUNTER 2018-02-26 18:29 | Emergency (ER) | payer OTHER ==
[~2018-02-26] VITALS: Ht 162.6 cm; Wt 71.7 kg
[~2018-02-26 18:29] MED LIST changes: +CARVEDILOL3.125 MG PO; +CEFDINIR300 MG PO; +FLOMAX0.4 MG PO
== END 2018-02-26 22:32 | disposition home or self-care (01) ==
LOC: ER 18:29
DX: Z46.6 Encounter for fitting and adjustment of urinary device (principal); E78.00 Pure hypercholesterolemia, unspecified; F17.210 Nicotine dependence, cigarettes, uncomplicated; Z88.1 Allergy status to other antibiotic agents; Z88.5 Allergy status to narcotic agent

== ENCOUNTER 2018-02-27 17:35 | Inpatient (IN) | payer OTHER ==
[~2018-02-27] VITALS: Ht 162.6 cm; Wt 86.2 kg
--- NOTE | ~2018-02-27 | HC ---
[facility] [place] [address] CONSULTATION Name: ISRRAEL CALDWELL Room #: 364-P ADM IN M.R.#: [id number] Admission: 02/27/18 Attend Phys: Kelli Lynn Discharge: Date of : 71 Report #: [id number] THIS REPORT FOR: //name// CC: Nikos Donahue Loyda DATE OF SERVICE: 02/28/2018 HISTORY OF PRESENT ILLNESS: This is a 42-year-old female patient who does not provide any reliable history. She has very unusual affect. She was apparently admitted for seizure. The history she provides is different than what is noted in the Emergency Room. She indicates that she did not have any Xanax and she is not on Xanax, but the last time it looks like a seizure was because of benzodiazepine withdrawal. She does indicate that she was on Keppra and she stopped taking her Keppra for some reason few days ago. Why she stopped it she will not say. At that time, the patient just became quiet and will not talk to me. I stressed her the importance of talking to me, so that I can provide the proper treatment, but she refused. REVIEW OF SYSTEMS: I carried out the 14-point review of system from the record. She has a history of transverse myelitis. She also had some ruptured disk. I had seen this patient in the past. We have left this patient on Keppra, but she apparently did not take and looks like she had another seizure. She has a history of ovarian cyst. She does have a history increased cholesterol. She was seen by Psychiatry last time and for me. PHYSICAL EXAMINATION: NEUROLOGICAL: It is difficult to do because she will not cooperate with the examination in spite of pleading for her to do that. She is alert. She is responsive. She is not having any active seizure, but she will not cooperate. I tried to do the cranial nerve examination and she would not cooperate. LUNGS: She has no respiratory difficulty and there is no rhonchi on either side. EXTREMITIES: She has paralysis of both lower extremities. GENERAL: She is moderately-built individual who does not have any dysmorphic features of eyes, ears and face. HEENT: Her hearing and visual looks adequate. VITAL SIGNS: Her blood pressure is 115/70, respiration is 19, pulse is 83 and temperature is 98.7. LABORATORY DATA: Her white count is 15.8 and that may represent seizure. She did not have any imaging study on the brain because she just recently had multiple imaging studies. I reviewed her EEG and it showed no seizure activity at all. [address] [address] CONSULTATION Name: ISRRAEL CALDWELL Room #: 364[facility] IN M.R.#: [id number] Admission: 02/27/18 Attend Phys: Kelli Lynn Discharge: Date of : 71 Report #: [id number] IMPRESSION AND RECOMMENDATIONS: I suspect this patient symptoms are because of seizure and it may once again be withdrawal seizure as well as noncompliance. I had a long talk with this patient that the consequences of the noncompliance can be disastrous. I am not sure how much she understands things, but I have had talk in the past also where she has understood these things very well. I do not think much can be done at this stage, we will just watch her. She is already on Keppra. I will try to reexamine her again when she is more cooperative. More than 50 minutes of time was spent taking care of this patient today and majority of that time was spent trying to explain to the patient the need for compliance, consequences of noncompliance and the need for her to cooperate. We did not get much progress today but hopefully, we will try again tomorrow. <ELECTRONICALLY SIGNED> By: Soham Martins MD 03/01/18 0818 1609 2340 Soham Martins MD /nt
--- NOTE | ~2018-02-27 | H ---
[facility] [place] [address] HISTORY AND PHYSICAL Name: ISRRAEL CALDWELL Room #: 364-P ADM IN M.R.#: [id number] Admission: 02/27/18 Attend Phys: Kelli Lynn Discharge: Date of : 71 Report #: [id number] THIS REPORT FOR: //name// CC: Nikos Donahue Loyda DATE OF SERVICE: 02/27/2018 CHIEF COMPLAINT: Seizure. HISTORY OF PRESENT ILLNESS: The patient is a 42-year-old female with multiple medical problems who was sent back to the Emergency Room from her home after the family witnessed generalized seizure, they said it lasted about 15 minutes. There was not much description to the ER, and the patient really could not provide any history. By the time she arrived to the ER, there apparently was no seizure activity, and she was at her baseline mentation. She has had 2 recent hospitalizations here, both with delirium, thought to be related to benzodiazepine withdrawal. At the first hospitalization, she had a seizure with hypoxic respiratory failure and required intubation, brief mechanical ventilation. At that time, recommendation for Keppra 500 mg b.i.d. was added, which she was sent home with a prescription. She was just hospitalized about 2 weeks ago with delirium again. It was unclear what medication she was taking at home as this time her urine drug screen did have opiates, benzodiazepines and marijuana, but it is unclear when she had taken her last doses of those meds. She got through withdrawal symptoms as evidenced by hypertension and tachycardia with just p.r.n. uses of Valium or Ativan. She did not have any type of allergic reaction to Ativan. She was seen by the Psychiatry Service who recommended discontinuing all of her medications with the exception of seizure medicine at this point. It is entirely unclear what or any medicine she was taking or missing at home. PAST MEDICAL HISTORY: Transverse myelitis with chronic paraplegia, seizure, thought to be due to benzodiazepine withdrawal, chronic pain syndrome, previously high dose narcotic use. PAST SURGICAL HISTORY: She has had some ovarian cysts treated. FAMILY HISTORY: Noncontributory. SOCIAL HISTORY: She lives with her family. No chronic alcohol or tobacco use, last two drug screens have been positive for marijuana. ALLERGIES: SHE REPORTS INTOLERANCE TO ACETAMINOPHEN, HYDROCODONE, MORPHINE, OMEPRAZOLE, OXYCODONE AND COMPAZINE. [facility] [address] [place] [address] HISTORY AND PHYSICAL Name: ISRRAEL CALDWELL Room #: 364-P [facility] IN ..#: [id number] Admission: 02/27/18 Attend Phys: Kelli Lynn Discharge: Date of : 71 Report #: [id number] MEDICATIONS: Coreg, Flomax, Omnicef, Keppra. REVIEW OF SYSTEMS: She denies headache, chest pain, shortness of breath, abdominal pain, nausea, vomiting, diarrhea, constipation, dysuria, syncope. OBJECTIVE: VITAL SIGNS: Temperature 37, pulse respirations 19, blood pressure 138/97, O2 sat 100% on room air. GENERAL: She is awake and alert, in no distress. LUNGS: Clear. HEART: Regular. ABDOMEN: Soft, normoactive bowel sounds. EXTREMITIES: Just trace nonpitting edema. NEUROLOGIC: She is oriented to place and situation, paraplegia, chronic noted. LABORATORY DATA: Reviewed. ASSESSMENT: 1. Seizure. 2. Chronic paraplegia. 3. Chronic transverse myelitis. PLAN: I will double up her Keppra dose at this point. Otherwise, continue home medications as per last discharge summary of Flomax, Omnicef, Keppra and Coreg, Lovenox for DVT prophylaxis. We will ask Dr. Martins to reassess for any other medication changes. Her Doran had been removed in the last hospital stay, and she was voiding without any signs of retention based on bladder scans, so we will remove the Doran again, continue oral antibiotics. I have stressed to her the need and my recommendation that she admit to a custodial facility for prolonged medical supervision and oversight to try to stabilize her condition as she has had approximately 4 hospitalizations within the last 6 weeks, one being at [facility] per family report. <ELECTRONICALLY SIGNED> By: Sunday Sanchez MD 03/01/18 0902 [id number] 0937 Sunday Sanchez MD /nt
--- NOTE | ~2018-02-27 | HC ---
[facility] [place] [address] CONSULTATION Name: ISRRAEL CALDWELL Room #: 364-P ADM IN M.R.#: [id number] Admission: 02/27/18 Attend Phys: Kelli Lynn Discharge: Date of : 71 Report #: [id number] THIS REPORT FOR: //name// CC: Nikos Larson Rowan Loyda DATE OF SERVICE: 02/28/2018 PERSONAL PHYSICIAN: Sunday Sanchez MD CHIEF COMPLAINT: Left thigh wound and a history of sacrococcygeal ulcerations. HISTORY OF PRESENT ILLNESS: This is a 42-year-old black female who has had multiple hospitalizations; this most recent one is for a seizure at home. The patient was brought to the Emergency Department, was admitted for the seizures. The patient at her last hospitalization was noted to have sacrococcygeal and gluteal ulcerations as well as multiple ulcerations on her legs, which are felt to be self-induced, itching. We have been asked to follow the patient for her ulcerations. The patient herself is an extremely poor historian. The patient states that she does not know how long that she has had the ulceration on her leg and denies the fact that she has been scratching her legs. The patient denies any pain associated with the ulcer. The patient denies any pain in her sacrococcygeal region. PAST MEDICAL HISTORY: Per old records is history of transverse myelitis with a chronic paraplegia, seizure disorder according to records thought to be due to benzodiazepine withdrawal, chronic pain syndrome. CURRENT MEDICATIONS: Include Coreg, Flomax, Omnicef and Keppra. DRUG ALLERGIES: MULTIPLE, I REVIEWED THE PATIENT'S MEDICATION ALLERGY LIST. SOCIAL HISTORY: The patient resides at home with her family. The patient denies alcohol or tobacco use; however, according to records, her last 2 drug screens have been positive for marijuana. FAMILY HISTORY: Not pertinent to current medical condition. REVIEW OF SYSTEMS: CONSTITUTIONAL: The patient denies fevers or chills. NEUROLOGIC: The patient had a recent seizure, but denies headache at this time. The patient has chronic paraplegia from transverse myelitis. EYES: No complaints. ENT: No complaints. CARDIAC: The patient denies chest pain, palpitations, peripheral edema. [address] [address] CONSULTATION Name: ISRRAEL CALDWELL Room #: 364-P [facility] IN M.R.#: [id number] Admission: 02/27/18 Attend Phys: Kelli Lynn Discharge: Date of : 71 Report #: [id number] RESPIRATORY: The patient denies shortness of breath, cough or wheezes. GASTROINTESTINAL: The patient denies nausea, vomiting, abdominal pain. GENITOURINARY: The patient denies urgency or frequency, but does have a Doran catheter in place. MUSCULOSKELETAL: No complaints. SKIN: The patient has an ulceration on her left anterior thigh as well as multiple scars from previous ulcerations and scar tissue over the area of sacrococcygeal and gluteal region, but no open ulcerations noted there. PHYSICAL EXAMINATION: VITAL SIGNS: Temp 36.9, pulse 94, respiration rate 18, BP 104/67. GENERAL: This is an alert and oriented x [address], but not time, black female who has an extremely flat affect. HEENT: Normocephalic, atraumatic. Mucous membranes are dry. Pupils are round. Sclerae white. NECK: Supple without rigidity. LUNGS: Clear. HEART: Regular. ABDOMEN: Obese, soft, otherwise nontender. EXTREMITIES: Evaluation of the lower extremities reveals a full-thickness ulceration on the left anterior thigh which has seropurulent drainage, but no signs of actual cellulitis. It goes down into the subcutaneous tissue. Periulcer itself is otherwise intact without erythema, warmth or maceration. There is no tunneling. Please see wound care nurse notes for the dimensions. There are multiple scar tissues from previous ulcerations noted on both lower extremities without any other open ulcerations. Bilateral heels are intact. Foot and toes are without open ulcerations. Evaluation of sacrococcygeal and gluteal region reveals scar tissue noted in those areas, but no open ulcerations at this time. NEUROLOGIC: Cranial nerves 2-12 grossly intact. The patient is paralyzed. LABORATORY VALUES: White count 8.4, hemoglobin 10.8, albumin is 3.1. IMPRESSION: 1. Left anterior thigh ulceration, limited to breakdown the subcutaneous tissue without signs of cellulitis. 2. History of sacrococcygeal and gluteal decubitus ulcers, now totally resolved. 3. History of seizure disorder. 4. Protein-calorie malnutrition -- moderate with albumin 3.1. 5. Generalized debility. PLAN: At this time, we will use silver foam border over the left anterior thigh wound, be changed 3 times weekly. We use barrier cream on her sacrococcygeal and gluteal area, to apply twice daily and p.r.n. soilage. The patient will be turned every 2 hours. We will put the patient on low air loss mattress for [address] [place] [address] CONSULTATION Name: ISRRAEL CALDWELL Room #: 364-P ADM IN M.R.#: [id number] Admission: 02/27/18 Attend Phys: Kelli Lynn Discharge: Date of : 71 Report #: [id number] protection given her paraplegia. I will make sure we maximize the patient's oral protein supplementation for continued healing. We will utilize physical and occupational therapy for strengthening. Continue all other current medications. We will continue to follow the patient. I appreciate the ability to consult. By: 0830 1614 Jos Hernandez MD /osvaldo
--- NOTE | ~2018-02-27 | EEG ---
[facility] [place] [address] ELECTROENCEPHALOGRAM Name: ISRRAEL CALDWELL Room #: 364-P ADM IN M.R.#: [id number] Admission: 02/27/18 Attend Phys: Nikos Stark, Discharge: Date of : 71 Report #: [id number] THIS REPORT FOR: //name// CC: Nikos Leekimberlyn Loyda DATE OF SERVICE: 02/28/2018 This patient is being evaluated for the possibility of seizure. EEG is being done to further evaluate that. EEG was done by placing the electrode by standard 10-20 system of electrode placement. Both referential and sequential montages were used for recording. Background activity in this patient's EEG is about 11 Hz and 40-50 microvolt. This is a symmetrical activity. Photic stimulation is unremarkable. This patient became drowsy and that is associated with bilateral slowing. Throughout the record, no active epileptiform activity was noticed. IMPRESSION: This patient's EEG is within normal limits. In spite of the fact that the patient give a history of seizure, the EEG is pretty well formed. <ELECTRONICALLY SIGNED> By: Soham Martins MD 03/01/18 0819 1552 1640 Soham Martins MD /nt
--- NOTE | ~2018-02-27 | HC ---
[facility] [address] [place] [address] CONSULTATION Name: ISRRAEL CALDWELL Room #: 364-P ADM IN M.R.#: [id number] Admission: 02/27/18 Attend Phys: Kelli Lynn Discharge: Date of : 71 Report #: [id number] THIS REPORT FOR: //name// CC: Nikos Rodriguesva DATE OF SERVICE: 02/28/2018 This is a 42-year-old female patient who was . DICTATION ENDS HERE <ELECTRONICALLY SIGNED> By: Soham Martins MD 03/01/18 0818 1144 190 Soham Martins MD /nt
[2018-02-27 17:36] VITALS: BP 136/95
[2018-02-27 18:19] LABS: ABSOLUTE NEUTROPHILS 9.6 thou/uL (1.4-8.2); BASOPHILS 0.9 % (0.0-2.0); EOSINOPHILS 2.4 % (0.0-3.0); HEMATOCRIT 37.3 % (37.0-47.0); LYMPHOCYTES 27.2 % (24.0-44.0); MCH 27.5 pg (26.0-34.0); MCHC 32.2 g/dL (28.0-37.0); MCV 85.4 fL (80.0-100.0); MONOCYTES 8.6 % (1.0-8.0); PLATELET COUNT 348 thou/uL (150-400); POLYS 60.9 % (36.0-66.0); RBC 4.37 mil/uL (4.20-5.00); RDW 16.6 % (10.5-14.5); WBC 15.8 thou/uL (4.0-11.0)
[2018-02-27 18:32] LABS: CALCIUM 9.4 mg/dL (8.5-10.1); POTASSIUM 3.3 mmol/L (3.5-5.1)
[2018-02-27 18:50] LABS: URINE BLOOD 1+ (Negative); URINE COLOR YELLOW; URINE GLUCOSE-RANDOM* NEGATIVE (Negative); URINE KETONES 3+ (Negative); URINE PROTEIN (DIPSTICK) 1+ (Negative)
[2018-02-27 18:51] LABS: URINE LEUKOCYTES-REFLEX 3+ (Negative); URINE NITRITE-REFLEX POSITIVE (Negative)
[2018-02-27 18:52] LABS: ICTOTEST (BILI CONFIRMATORY) Negative (Negative); URINE BILIRUBIN NEGATIVE (Negative); URINE CLARITY CLOUDY
[2018-02-27 18:53] LABS: URINE REDUCING SUBSTANCE NEGATIVE
[2018-02-27 19:01] LABS: SQUAMOUS 4-10 Moderate /LPF (0-3); URINE WBC-REFLEX >25 Many /HPF (0-5)
[2018-02-27 19:02] LABS: BACTERIA-REFLEX >30 Many /HPF (None Seen); CASTS None Seen /LPF (None Seen); URIC ACID CRYSTALS 0-3 Few /LPF (None Seen); URINE RBC 3-10 Few /HPF (0-2)
[2018-02-27 19:06] LABS: AMP/METHAMP Negative (Negative); BARBITURATES Negative (Negative); BENZODIAZEPINES Negative (Negative); COCAINE Negative (Negative); METHADONE Negative (Negative); OPIATES Negative (Negative); PCP Negative (Negative)
[2018-02-27 20:28] VITALS: BP 119/78
[2018-02-27 20:38] VITALS: BP 110/76
[2018-02-27 20:43] VITALS: BP 110/76
[2018-02-27 21:18] VITALS: BP 112/74
[2018-02-27 23:40] VITALS: BP 111/72
[2018-02-28 03:35] VITALS: BP 130/91
[2018-02-28 08:12] VITALS: BP 138/97
[2018-02-28 12:15] VITALS: BP 110/67
[2018-02-28 15:35] VITALS: BP 115/70
[2018-02-28 20:00] VITALS: BP 111/75
[2018-03-01] VITALS (7 sets, daily range): BP systolic 72–110; BP diastolic 60–75
[2018-03-01 06:27] LABS: HEMATOCRIT 33.1 % (37.0-47.0); HEMOGLOBIN 10.8 gm/dL (12.0-15.0); MCH 27.2 pg (26.0-34.0); MCHC 32.5 g/dL (28.0-37.0); MCV 83.8 fL (80.0-100.0); RBC 3.95 mil/uL (4.20-5.00); RDW 16.1 % (10.5-14.5); WBC 8.4 thou/uL (4.0-11.0)
[2018-03-01 06:39] LABS: CALCIUM 8.8 mg/dL (8.5-10.1); CREATININE 0.7 mg/dL (0.6-1.0); POTASSIUM 3.2 mmol/L (3.5-5.1)
[2018-03-01] MEDS ORDERED: ENOXAPARIN40 MG/0.1 SUBQ (14:58)
[2018-03-01] MEDS ORDERED: KEPPRA 500 MG500 M1 PO (14:58)
== END 2018-03-01 21:15 | DRG 101 ==
LOC: ER 17:35 → 3W 19:37 → EROBS 19:37 → 3W 20:40
PROVIDERS: Emergency Medicine; Internal Medicine Geriatric Medicine
DX: G40.909 Epilepsy, unspecified, not intractable, without status epilepticus (principal); G82.20 Paraplegia, unspecified; L97.129 Non-pressure chronic ulcer of left thigh with unspecified severity; E44.0 Moderate protein-calorie malnutrition; G37.3 Acute transverse myelitis in demyelinating disease of central nervous system; G89.4 Chronic pain syndrome; Z88.6 Allergy status to analgesic agent; Z88.8 Allergy status to other drugs, medicaments and biological substances; Z91.14 Patient's other noncompliance with medication regimen; Z68.32 Body mass index [BMI] 32.0-32.9, adult
CPT/HCPCS: 10879

== ENCOUNTER 2018-08-03 21:31 | Emergency (ER) | payer MEDICARE, OTHER ==
[~2018-08-03] VITALS: Ht 162.6 cm; Wt 108.4 kg
[~2018-08-03 21:31] MED LIST changes: +ENOXAPARIN40 MG/0.1 SUBQ
[2018-08-03] MEDS ORDERED: CATHFLO ACT2 MG/VIA1 IV (21:56)
[2018-08-03] MEDS ORDERED: HEPARIN 31 UNIT/1 M IV (21:57)
[2018-08-03] MEDS ORDERED: AMBIEN 5 MG TABL5 M1 PO (21:58)
[2018-08-03] MEDS ORDERED: ALPRAZOLAM2 MG PO (21:58)
[2018-08-03] MEDS ORDERED: LIORESAL 10 MG10 MG PO (21:59)
[2018-08-03] MEDS ORDERED: COLACE100 MG PO (21:59)
[2018-08-03] MEDS ORDERED: VITAMINC500 PO (21:59)
[2018-08-03] MEDS ORDERED: IRON325 PO (22:00)
[2018-08-03] MEDS ORDERED: FUROSEMIDE 40 M40 M1 PO (22:00)
[2018-08-03] MEDS ORDERED: NEURONTIN 300300 M1 PO ×2 (22:01)
[2018-08-03] MEDS ORDERED: GLYCOLAX119 GM PO (22:02)
[2018-08-03] MEDS ORDERED: GUAICON DMS LIQ10 M1 PO (22:04)
[2018-08-03] MEDS ORDERED: DILAUDID 2 MG TA2 MG PO ×2 (22:06→22:07)
[2018-08-03] MEDS ORDERED: JUVEN PACKET1 EAC1 PO (22:07)
[2018-08-03] MEDS ORDERED: MELATONIN3 MG PO (22:08)
[2018-08-03] MEDS ORDERED: LINEZOLID600 MG PO (22:08)
[2018-08-03] MEDS ORDERED: UNICOMPLEX M TA1 TA1 PO (22:09)
[2018-08-03] MEDS ORDERED: MEROPENEM-1000 MG/50 IVPB (22:09)
[2018-08-03] MEDS ORDERED: PROBIOTIC1 EAC1 PO (22:10)
[2018-08-03] MEDS ORDERED: OXYCONTIN15 MG PO (22:10)
[2018-08-03] MEDS ORDERED: VITAMIN D31000 UNI2 PO (22:11)
[2018-08-03] MEDS ORDERED: ZOFRAN ODT4 MG PO (22:11)
[2018-08-03 22:47] LABS: HEMATOCRIT 27.4 % (37.0-47.0); HEMOGLOBIN 9.3 gm/dL (12.0-15.0); MCHC 34.1 g/dL (28.0-37.0); RBC 3.11 mil/uL (4.20-5.00); WBC 6.3 thou/uL (4.0-11.0)
[2018-08-03 22:56] LABS: CALCIUM 9.1 mg/dL (8.5-10.1); CREATININE 0.7 mg/dL (0.6-1.0); POTASSIUM 4.2 mmol/L (3.5-5.1)
[2018-08-03 23:03] LABS: ALBUMIN 2.6 g/dL (3.4-5.0); TOTAL BILIRUBIN 0.3 mg/dL (<0.1-1.0); TOTAL PROTEIN 7.3 g/dL (6.4-8.2)
[2018-08-04 02:51] VITALS: BP 109/54
== END 2018-08-04 02:51 | disposition home or self-care (01) ==
LOC: ER 21:31
PROVIDERS: Emergency Medicine
DX: I89.0 Lymphedema, not elsewhere classified (principal); G89.29 Other chronic pain; R11.2 Nausea with vomiting, unspecified; E78.00 Pure hypercholesterolemia, unspecified; G47.00 Insomnia, unspecified; F17.210 Nicotine dependence, cigarettes, uncomplicated; Z79.01 Long term (current) use of anticoagulants; Z88.5 Allergy status to narcotic agent; Z88.6 Allergy status to analgesic agent; Z88.8 Allergy status to other drugs, medicaments and biological substances

== ENCOUNTER 2021-05-13 19:26 | Emergency (ER) | payer OTHER ==
[~2021-05-13] VITALS: Ht 162.6 cm; Wt 93.0 kg
[~2021-05-13 19:26] MED LIST changes: +ALPRAZOLAM2 MG PO; +CATHFLO ACT2 MG/VIA1 IV; +COLACE100 MG PO; +DILAUDID 2 MG TA2 MG PO; +FUROSEMIDE 40 M40 M1 PO; +GLYCOLAX119 GM PO; +GUAICON DMS LIQ10 M1 PO; +HEPARIN 31 UNIT/1 M IV; +IRON325 PO; +JUVEN PACKET1 EAC1 PO; +LINEZOLID600 MG PO; +MELATONIN3 MG PO; +MEROPENEM-1000 MG/50 IVPB; +OXYCONTIN15 MG PO; +PROBIOTIC1 EAC1 PO; +UNICOMPLEX M TA1 TA1 PO; +VITAMIN D31000 UNI2 PO; +VITAMINC500 PO
[2021-05-13 20:48] LABS: ABSOLUTE NEUTROPHILS 3.6 thou/uL (1.4-8.2); EOSINOPHILS 3.1 % (0.0-3.0); HEMATOCRIT 38.6 % (37.0-47.0); HEMOGLOBIN 13.1 gm/dL (12.0-15.0); LYMPHOCYTES 37.7 % (24.0-44.0); MCH 31.2 pg (26.0-34.0); MCV 91.8 fL (80.0-100.0); MONOCYTES 7.6 % (1.0-8.0); PLATELET COUNT 199 thou/uL (150-400); POLYS 50.6 % (36.0-66.0)
[2021-05-13 20:52] LABS: CREATININE 1.2 mg/dL (0.6-1.0); POTASSIUM 4.2 mmol/L (3.5-5.1)
[2021-05-13] MEDS ORDERED: XANAX2 MG PO (21:31)
[2021-05-13] MEDS ORDERED: XANAX 1 MG TABLE1 MG PO (21:38)
[2021-05-13 22:02] VITALS: BP 130/89
== END 2021-05-14 00:30 | disposition home or self-care (01) ==
LOC: ER 19:26
PROVIDERS: Student in an Organized Health Care Education/Training Program
DX: M62.831 Muscle spasm of calf (principal); G37.3 Acute transverse myelitis in demyelinating disease of central nervous system; G62.9 Polyneuropathy, unspecified; E78.5 Hyperlipidemia, unspecified; F32.9 Major depressive disorder, single episode, unspecified; F10.10 Alcohol abuse, uncomplicated; F17.210 Nicotine dependence, cigarettes, uncomplicated; Z98.890 Other specified postprocedural states; Z79.891 Long term (current) use of opiate analgesic; Z79.1 Long term (current) use of non-steroidal anti-inflammatories (NSAID); Z79.899 Other long term (current) drug therapy; Z88.6 Allergy status to analgesic agent; Z88.5 Allergy status to narcotic agent; Z88.8 Allergy status to other drugs, medicaments and biological substances

== ENCOUNTER 2021-07-25 20:24 | Inpatient (IN) | payer OTHER ==
[~2021-07-25] VITALS: Ht 152.4 cm; Wt 93.0 kg
[~2021-07-25 20:24] MED LIST changes: +XANAX2 MG PO
[2021-07-25 20:25] VITALS: BP 125/67
[2021-07-25 20:58] LABS: URINE BILIRUBIN 1+ (Negative); URINE BLOOD 3+ (Negative); URINE CLARITY TURBID; URINE COLOR YELLOW; URINE GLUCOSE-RANDOM* NEGATIVE (Negative); URINE KETONES NEGATIVE (Negative); URINE LEUKOCYTES-REFLEX 3+ (Negative); URINE NITRITE-REFLEX POSITIVE (Negative); URINE PROTEIN (DIPSTICK) 2+ (Negative); URINE SPECIFIC GRAVITY 1.015 (1.005-1.035)
[2021-07-25 21:13] LABS: AMORPHOUS PHOSPHATES Few /LPF (None Seen); BACTERIA-REFLEX >30 Many /HPF (None Seen); CASTS None Seen /LPF (None Seen); MUCUS 4-6 Moderate strn/LPF (None Seen); SQUAMOUS 4-10 Moderate /LPF (0-3); TRIPLE PHOSPHATE CRYSTALS 0-3 Few /LPF (None Seen); URINE RBC >20 Many /HPF (NONE SEEN); URINE WBC-REFLEX >25 Many /HPF (0-5)
[2021-07-25 21:38] LABS: ABSOLUTE NEUTROPHILS 6.4 thou/uL (1.4-8.2); BASOPHILS 1.3 % (0.0-2.0); EOSINOPHILS 0.7 % (0.0-3.0); HEMATOCRIT 32.4 % (37.0-47.0); HEMOGLOBIN 10.9 gm/dL (12.0-15.0); LYMPHOCYTES 14.7 % (24.0-44.0); MCH 30.7 pg (26.0-34.0); MCHC 33.7 g/dL (28.0-37.0); MCV 90.9 fL (80.0-100.0); MONOCYTES 10.7 % (1.0-8.0); PLATELET COUNT 133 thou/uL (150-400); POLYS 72.6 % (36.0-66.0); RBC 3.56 mil/uL (4.20-5.00); RDW 14.8 % (10.5-14.5); WBC 8.8 thou/uL (4.0-11.0)
[2021-07-25 21:43] LABS: CALCIUM 8.3 mg/dL (8.5-10.1); CREATININE 1.1 mg/dL (0.6-1.0); POTASSIUM 4.5 mmol/L (3.5-5.1)
[2021-07-25 21:49] LABS: ALBUMIN 2.4 g/dL (3.4-5.0); TOTAL BILIRUBIN 0.8 mg/dL (0.2-1.0); TOTAL PROTEIN 6.7 g/dL (6.4-8.2)
[2021-07-25 22:35] VITALS: BP 93/73
[2021-07-25] MEDS ORDERED: XTAMPZA ER18 MG PO (22:41)
[2021-07-25 23:33] VITALS: BP 107/63
[2021-07-26] VITALS (8 sets, daily range): BP systolic 81–114; BP diastolic 44–73
--- NOTE | 2021-07-26 05:49 | NUR ---
PATIENT CARES WHERE ASSUMED AFTER HER TRASFER FROM ER. PATIENT WAS ASSESSED AND MEDS WHERE PASSED. MED REC REVIEWED. PATIENT GET DRUGS FROM [facility]. AT [facility] ROUND WHERE DONE. THE BED IS IN A LOW AND LOCKED POSITION.
--- NOTE | 2021-07-26 08:01 | EKG ---
[address] [address] ELECTROCARDIOGRAM REPORT Name: ISRRAEL CALDWELL Room #: 200-I ADM IN .R.#: [id number] Admission: 07/25/21 Attend Phys: Edin Ibarra MD Discharge: Date of : 71 Report #: [id number] [facility] ED Test Date: 2021-07-25 Test Time: 22:22:08 Pat Name: ISRRAEL CALDWELL Department: Room: 200 Gender: F Instrumentation And Control Technician: : 1975 Requested By: Georgette Car Order Number: [id number] : Chito Foley Measurements Intervals [place] Rate: 108 P: 79 MD: 132 QRS: 36 QRSD: 73 T: 25 QT: 314 QTc: 421 Interpretive Statements Sinus tachycardia Probable left atrial enlargement Compared to ECG 01/18/2018 10:12:45 No significant changes Electronically Signed On 07-26-2021 8:00:57 PERMACULTURE DESIGNER by Chito Foley [email or web address] <ELECTRONICALLY SIGNED> By: Chito Foley MD, [facility] 07/26/21 0800 21 2222 Chito Foley MD, FACC /EPI
--- NOTE | 2021-07-26 15:03 | NUR ---
VAT CONSULTED FOR ML. PT'S LABS,MEDS,HX REVIEWED. DISCUSSED BENEFITS AND RISK OF ML WITH PT, VERBALIZED UNDERSTANDING AND GAVE VERBAL CONSENT. TINO SANABRIA WAS WIDELY PATENT WITH USG. 4FR POWER ML TRIMMED TO 11CM INSERTED X1 STICK TO 0CM WITH BRISK BR. PT TOLERATED WELL. ML RELEASED FOR IMMEDIATE USE PER PROTOCOL.
--- NOTE | 2021-07-26 19:40 | NUR ---
Pt had high fever (103) during AM which was controled and reduced using iburpofen, naproxen and cold wet towels. After resolution of fever she has been stable throughout shift. Pt requested 3 doses of IV pain medication and then begining PO meds. She was given 2 doses of fentanyl and has orders for PO Dilauded. Pts BP was low in the afternoon (81/47) possibly d/t dicontinuation of fluids d/t loss of IV access. A midline was placed and IV fluids were continued and BP returned to normal range.
[2021-07-27 04:08] VITALS: BP 111/68
[2021-07-27 05:48] LABS: BASOPHILS 0.8 % (0.0-2.0); EOSINOPHILS 5.3 % (0.0-3.0); HEMATOCRIT 28.1 % (37.0-47.0); HEMOGLOBIN 9.5 gm/dL (12.0-15.0); LYMPHOCYTES 20.1 % (24.0-44.0); MCH 31.2 pg (26.0-34.0); MCHC 33.7 g/dL (28.0-37.0); MCV 92.4 fL (80.0-100.0); MONOCYTES 12.5 % (1.0-8.0); PLATELET COUNT 116 thou/uL (150-400); POLYS 61.3 % (36.0-66.0); RBC 3.04 mil/uL (4.20-5.00); WBC 4.8 thou/uL (4.0-11.0)
--- NOTE | 2021-07-27 05:52 | NUR ---
PATIENT CARE WAS ASSUMED AT SHIFT CHANGE, PATIENT WAS ASSESSED AND MEDS WHERE PASSED. PATIENT NOT HAPPY WITH HER MED RANGES BEING CHANGED. PATIENT WANTS TO "TRANSFER TO [facility] WHERE HER MEDS CAN BE BETTER REGULATED." ROUNDS WERE DONE. THE BED IS IN A LOW AND LOCKED POSITION
--- NOTE | 2021-07-27 06:00 | NUR ---
THE NURSE PRACTIONER AND DIRECTOR MEDICAL ECONOMICS ARE AWER OF PATIENT WHATS TO TRANSFER TOO KU. WILLIAMS THE HOUSE SUPERVISER DID TALK TO THIS PATIET.
[2021-07-27 06:18] LABS: ALBUMIN 1.7 g/dL (3.4-5.0); CALCIUM 7.7 mg/dL (8.5-10.1); CREATININE 0.9 mg/dL (0.6-1.0); POTASSIUM 3.9 mmol/L (3.5-5.1); TOTAL BILIRUBIN 0.4 mg/dL (0.2-1.0); TOTAL PROTEIN 5.2 g/dL (6.4-8.2)
[2021-07-27 07:25] VITALS: BP 121/83
--- NOTE | 2021-07-27 08:26 | NUR ---
PT IS AXOX4, APPROPRIATE. WANTS TO LEAVE [facility] TO GO TO TO "HAVE THEM GET MY PAIN UNDER CONTROL." TRANSPORTATION SERVICES ON HER INSURANCE CARD TAKEN. DR LEIVA CONSULTED. PAIN MGMT RX DILAUDID PO TO CHANGE TO IV. WILL CONTINUE TO MONITOR PAIN MGMT. FALL PRECAUTIONS IN PLACE.
[2021-07-27 11:20] VITALS: BP 112/71
--- NOTE | 2021-07-27 11:34 | NUR ---
met with patient who is A/Ox4. Patient a paraplegic. She lives in [facility] with elevator. She reports she can transfer herself to/from . She has home based community services for 4.45 hours in home daily. Patient has home health care with [facility] care. Sp with [facility] and updated regarding admission. Patient discussed being in nursing facilities in past and how awlful they are to be in one. She plans home [place] with resumption of HH care. faxed clinical to [facility].
[2021-07-27 15:12] VITALS: BP 124/81
--- NOTE | 2021-07-27 19:36 | NUR ---
At beginning of shift, pt stated that she wanted to be transport to for pain management. After speaking with the Dr, her IV pain medication was changed from fentanyl to dilauded (up to 2 mg). Pt was educated on the administration of pain medication and the availability of 4 doses before the need to notify the Dr. for re-evaulation of the situation. Pt agreed to recieving 3/4 doses during day shift and leaving 1 dose for mini shifter and then transitioning to PO pain mediction.
--- NOTE | 2021-07-27 19:40 | NUR ---
Pt removed her colostomy bag. Sulma-stoma area was cleaned and new colostomy bag was placed.
--- NOTE | 2021-07-27 19:41 | NUR ---
Pt wanted to sit in wheelchair. Pt was informed that d/t high fall risk we are unable to provide a wheelchair for her to sit in. Position change using pillows was offered and pt refused.
[2021-07-27 20:25] VITALS: BP 131/79
[2021-07-28 04:45] VITALS: BP 131/76
[2021-07-28 08:14] VITALS: BP 142/97
[2021-07-28] MEDS ORDERED: CEFUROXIME500 MG PO (08:24)
[2021-07-28 09:59] VITALS: BP 142/97
[2021-07-28 11:05] VITALS: BP 142/97
--- NOTE | 2021-07-28 11:16 | NUR ---
WOUND CONSULT; I WAS CONSULTED FOR A WOUND ASSESSMENT OF THIS PATIENTS LEFT HEEL. THE LEFT HEEL HAS A WOUND THAT IS 3 X 3 WITH A DARK UNSTABLE AREA OF ESCHAR. NO ODOR OR COMPLAINTS OF PAIN. THE PATIENT IS DISCHARGING TODAY TO HOME. SHE HAS AN APPOINTMENT TO SEE DR BLAIR HAAS MD. RECCOMMENDATIONS; -KEEP APPOINTMENT WITH DR HAAS. -FOR NOW APPLY XEROFORM GAUZE TO WOUND BED, COVER WITH A PLAIN FOAM DRESSING, SECURE WITH KERLIX, CHANGE EVERY OTHER DAY.
[2021-07-28 11:47] VITALS: BP 130/86
[2021-07-28 13:21] VITALS: BP 142/97
--- NOTE | 2021-07-28 13:41 | NUR ---
patient to [place]. Faxed HH orders to [facility]. Called they rec orders for start of care. Patient has transport home.
--- NOTE | 2021-07-28 14:18 | NUR ---
PT IS AXOX4, FORGETFUL, SOMETIMES SITUATIONAL UNAWARE. VSS, AFEBRILE, SR ON THE MONITOR. PT TO D/C HOME THIS PM. PAPER RX FOR ABX THERAPY; TRANSPORTATION SERVICES PROVIDED THROUGH INSURANCE. PT D/C HOME WITH WHEEL CHAIR VAN FROM INSURANCE. HOSPITAL WHEELCHAIR WAS PROVIDED TO TRANSPORT PT AND TRANSPORTATION SERVICE STATED THEY WILL RETURN WHEELCHAIR. PT CALLED WHILE ENROUTE TO HOME STATING SHE LOST HER APT KEYS. HOUSEKEEPING FOUND KEYS IN BED. [employer] WILL BRING KEYS TO PT AND RETURN W/C TO HOSPITAL.
--- NOTE | 2021-07-29 23:58 | HC ---
[facility] [place] [address] CONSULTATION Name: ISRRAEL CALDWELL Room #: 200-I [facility] IN ..#: [id number] Admission: 07/25/21 Attend Phys: Leticia Petersen Discharge: 07/28/21 Date of : 71 Report #: [id number] THIS REPORT FOR: cc: NIKKI - No family physician/PCP FAM - No family physician/PCP Jose Elias Stark MD ~ DATE OF SERVICE: 07/26/2021 INFECTIOUS DISEASES CONSULTATION REASON FOR CONSULTATION: I was asked to evaluate concerning sepsis in the setting of paraplegia. HISTORY OF PRESENT ILLNESS: The patient is a 45-year-old with history of transverse myelitis and paraplegia who has had a recurrent chronic pressure wounds. She has bipolar disorder, chronic pain syndrome. She noted several days ago, she slipped out of her chair and was on the floor for over 11 hours before someone came in to get her off the floor. She states that paramedics responded and put her back to bed, but left her wheelchair in the corner of her room without her phone by her and she laid in bed for 3 days without food or water. She states she ultimately yelled out when a neighbor walked by her apartment. She was brought in again by EMS. She had fever of 102 degrees. She was tachycardic and very weak. She has had a wound to her left heel. She noticed increased sedimentation to her urine output as she has a Doran catheter. She now reports her pain is out of control. She is having spasms in her lower extremities. Denies any cough or sputum production. No loss of consciousness. When she presented to the Emergency Room, she had a temperature of 39.3, hemodynamically was stable with a pulse rate of 116, respiratory rate of 20. Her CPK was 497. Creatinine was 1.1 with a BUN of 25. Lactate of 1.1. Liver function tests normal. Hemoglobin 10.9, white count 8.8, platelet count 133,000. Her urinalysis showed pyuria and bacteriuria. Placed on IV therapy. Her fever has subsided, still has pain, no cough or sputum. No chest pain, no nausea, vomiting or diarrhea. Appetite has improved. PAST MEDICAL HISTORY: L1 through L5 ruptured disk, ovarian cyst, hyperlipidemia, transverse myelitis, sacral wounds, pressure ulcers of both feet, neurogenic bladder, bipolar disorder, chronic pain syndrome, insomnia, muscle spasms, alcohol abuse, tobacco abuse. MEDICATIONS: As noted on her MAR, which were reviewed. ALLERGIES: HYDROCODONE, LORAZEPAM, MORPHINE, OMEPRAZOLE, OXYCODONE, PROCHLORPERAZINE. FAMILY HISTORY: No report of tuberculosis. [address] [address] CONSULTATION Name: ISRRAEL CALDWELL Room #: 200-I [facility] IN M.R.#: [id number] Admission: 07/25/21 Attend Phys: Leticia Petersen Discharge: 07/28/21 Date of : 71 Report #: [id number] SOCIAL HISTORY: She is a smoker of cigarettes. No significant alcohol intake. Lives on her own. REVIEW OF SYSTEMS: A 14-point review of system was negative other than what has been described above. PHYSICAL EXAMINATION: GENERAL: She was afebrile, hemodynamically stable. Complained of having diffuse pain, uncontrolled. SKIN: Skin with a stage IV wound to her left heel. No palpable adenopathy. HEENT: Eyes without scleral icterus. Mouth without mucositis. NECK: Supple. LUNGS: Clear. HEART: Regular, without murmur, gallop or rub. ABDOMEN: Soft. No hepatosplenomegaly or mass. GENITOURINARY: External genitalia with indwelling Doran catheter. RECTAL: Not performed. NEUROLOGICAL: Paraplegic, spastic. PSYCHIATRIC: Mood without anxiety. LABORATORY DATA: Laboratory reviewed. Microbiology reviewed. Chest x-ray reviewed. IMPRESSION: A 45-year-old with complicated urinary tract infection, fever, anemia, mild rhabdomyolysis, acute kidney injury. RECOMMENDATION: Continue with broad antibiotic coverage pending culture results. Continue with pain management. Make adjustments to her medications pending cultures. Hydrate as the patient's CPK was elevated and we will follow levels. <ELECTRONICALLY SIGNED> By: Jose Elias Stark MD 07/29/21 [id number] Jose Elias Stark MD /nt
== END 2021-07-28 14:37 | disposition home health service (06) | DRG 871 ==
LOC: ER 20:24 → 2N 22:14 → EROBS 22:14 → 2N 07-26 00:21
PROVIDERS: Nurse Practitioner Family; Specialist; ADMIT Hospitalist; ATTEND Hospitalist
PROC: 05HY33Z Insertion of Infusion Device into Upper Vein, Percutaneous Approach (ICD-10-PCS; principal; 2021-07-26)
DX: A41.9 Sepsis, unspecified organism (principal); E43 Unspecified severe protein-calorie malnutrition; M62.82 Rhabdomyolysis; G82.20 Paraplegia, unspecified; N17.9 Acute kidney failure, unspecified; G37.3 Acute transverse myelitis in demyelinating disease of central nervous system; N30.01 Acute cystitis with hematuria; Z68.41 Body mass index [BMI] 40.0-44.9, adult; L89.626 Pressure-induced deep tissue damage of left heel; Z20.822 Contact with and (suspected) exposure to COVID-19; E78.5 Hyperlipidemia, unspecified; F32.9 Major depressive disorder, single episode, unspecified; G47.00 Insomnia, unspecified; G89.4 Chronic pain syndrome; D64.9 Anemia, unspecified; G40.909 Epilepsy, unspecified, not intractable, without status epilepticus; F41.9 Anxiety disorder, unspecified; F17.210 Nicotine dependence, cigarettes, uncomplicated; N31.9 Neuromuscular dysfunction of bladder, unspecified; Z88.6 Allergy status to analgesic agent; Z88.8 Allergy status to other drugs, medicaments and biological substances; Z79.899 Other long term (current) drug therapy
CPT/HCPCS: 10081; 27000

== ENCOUNTER 2021-08-21 17:08 | Inpatient (IN) | payer OTHER ==
[~2021-08-21] VITALS: Ht 162.6 cm; Wt 90.7 kg
--- NOTE | ~2021-08-21 | EMS ---
[address] [address] EMS Patient Care Report Name: ISRRAEL CALDWELL Room #: 200-I ADM IN M.R.#: [id number] Admission: 08/21/21 Attend Phys: Leticia Petersen Discharge: Date of : 71 Report #: [id number] THIS REPORT FOR: //name// Report Transmitted: 08/26/2021 14:07 EMS Care Summary [place], [place]/[facility] Incident [id number] @ 08/21/2021 16:20 Incident Location [address] [place] [address] Patient ISRRAEL CALDWELL Female, 45 Years 1975 Patient Address [address] [place], [place] [id number] Patient History Other,Sepsis, Patient Allergies No known allergies, Patient Medications Unknown, Chief Complaint wound on left foot that is black Disposition Transported No Lights/[place] [facility] Reason Sick Person Transported To [facility] Narrative called on female pt that is sick.upon arrival pt found a and o times 3 and sitting in wheelchair.pt states 2 weeks ago she was seen at [facility] for [facility] [address] [place] [address] EMS Patient Care Report Name: ISRRAEL CALDWELL Room #: 200-I ADM IN M.R.#: [id number] Admission: 08/21/21 Attend Phys: Leticia Edinson Nicola Discharge: Date of : 71 Report #: [id number] sepsis and has not been feeling well since she was discharged.she states her lab coordinator was at her house today and wrapped her left foot and noticed a black wound on the bottom of her foot and aaron that her urine in her bird was very cloudy.pt states she has had trouble eating and drinking today,just no appetite and it made her feel worse.urine is very cloudy and pt has a temp of 100.1.pt moved to stretcher and secured.pt moved to unit and vitals taken.pt transported to [facility].pt placed on monitor due to her heart rate being 134,sinus tach on monitor.iv attempted enroute times 1 without success.report and care given to rn in bed 12 and pt moved to er bed. Initial Vitals @16:47P: 132,CO: 15,SpO2: 97, @16:45P: 135,CO: 11,SpO2: 96, @16:47P: 132,CO: 15,SpO2: 97, @16:45P: 134,BP: 106/67,SpO2: 95, @16:45P: 135,CO: 11,SpO2: 96, @16:57P: 138,CO: 15,SpO2: 96, @16:58P: 135,R: 16,BP: 113/78,Pain: 2/10,GCS: 15,SpO2: 94,Revised Trauma: 12,SC Suspected: false @16:45P: 134,R: 16,BP: 106/67,Pain: 2/10,GCS: 15,Temp: 100.1F,SpO2: 95,Revised Trauma: 12,SC Suspected: false Assessments @16:32MENTAL:No Abnormalities,SKIN:No Abnormalities,HEENT:Head/Face: No Abnormalities,Eyes: No Abnormalities,Neck/Airway: No Abnormalities,LUNG SOUNDS:General: No Abnormalities,Left Upper: No Abnormalities,Right Upper: No Abnormalities,Left Lower: No Abnormalities,Right Lower: No Abnormalities,ABDOMEN:General: No Abnormalities,Left Upper: No Abnormalities,Right Upper: No Abnormalities,Left Lower: No Abnormalities,Right Lower: No Abnormalities,PELVIS//GI:No Abnormalities,EXTREMITIES:Left Arm: No Abnormalities,Right Arm: No Abnormalities,Left Leg: No Abnormalities,Right Leg: No Abnormalities,PULSE:NEURO:No Abnormalities, Impression Urinary Tract Infection (UTI) Procedures @16:32 ALS Assessment Response: UnchangedSucceeded @16:53 IV Therapy - Saline Lock 0cc (22 ga) Site: Hand-Right Response: UnchangedFailed @16:51 3-Lead ECG Response: UnchangedSucceeded Timeline 16:19,Call Received 16:19,Dispatch Notified [address] [address] EMS Patient Care Report Name: ISRRAEL CALDWELL Room #: 200-I ADM IN M.R.#: [id number] Admission: 08/21/21 Attend Phys: Leticia Petersen Discharge: Date of : 71 Report #: [id number] 16:20,Dispatched 16:21,En Route 16:26,On Scene 16:32,At Patient 16:32,ALS Assessment,Response: UnchangedSucceeded, 16:45,BP: 106/67 M,PULSE: 134,RR: R,SPO2: 95 Ox,ETCO2: ,BG: ,PAIN: ,GCS: , 16:45,BP: 106/67 M,PULSE: 134,RR: 16 R,SPO2: 95 Ox,ETCO2: ,BG: ,PAIN: 2,GCS: 15, 16:45,BP: / M,PULSE: 135,RR: R,SPO2: 96 Ox,ETCO2: ,BG: ,PAIN: ,GCS: , 16:45,BP: / M,PULSE: 135,RR: R,SPO2: 96 Ox,ETCO2: ,BG: ,PAIN: ,GCS: , 16:46,Depart Scene 16:47,BP: / M,PULSE: 132,RR: R,SPO2: 97 Ox,ETCO2: ,BG: ,PAIN: ,GCS: , 16:47,BP: / M,PULSE: 132,RR: R,SPO2: 97 Ox,ETCO2: ,BG: ,PAIN: ,GCS: , 16:51,3-Lead ECG,Response: UnchangedSucceeded, 16:53,IV Therapy - Saline Lock 0cc 22 ga Site: Hand-Right,Response: UnchangedFailed, 16:57,BP: / M,PULSE: 138,RR: R,SPO2: 96 Ox,ETCO2: ,BG: ,PAIN: ,GCS: , 16:58,BP: 113/78 M,PULSE: 135,RR: 16 R,SPO2: 94 Ox,ETCO2: ,BG: ,PAIN: 2,GCS: 15, 17:13,At Destination 17:29,Call Closed Disclaimer v1.1 Copyright 2020 [employer] This EMS Care Summary contains data elements from the applicable legal record (which may be displayed differently). It is designed to provide pertinent information for the following purposes: continuity of care, clinical quality, and state data reporting. The complete legal record is available to ED staff and administrators of the receiving hospital in [employer]'s Patient Tracker. All data is provided "as is."
[~2021-08-21 17:08] MED LIST changes: +CEFUROXIME500 MG PO; +XTAMPZA ER18 MG PO
[2021-08-21 17:09] VITALS: BP 92/49
[2021-08-21 19:28] LABS: ABSOLUTE NEUTROPHILS 6.3 thou/uL (1.4-8.2); BASOPHILS 0.1 % (0.0-2.0); EOSINOPHILS 1.1 % (0.0-3.0); HEMATOCRIT 38.5 % (37.0-47.0); HEMOGLOBIN 12.7 gm/dL (12.0-15.0); LYMPHOCYTES 25.3 % (24.0-44.0); MCH 29.8 pg (26.0-34.0); MCV 90.1 fL (80.0-100.0); MONOCYTES 4.2 % (1.0-8.0); PLATELET COUNT 288 thou/uL (150-400); POLYS 69.3 % (36.0-66.0); RBC 4.27 mil/uL (4.20-5.00); RDW 15.3 % (10.5-14.5); WBC 9.1 thou/uL (4.0-11.0)
[2021-08-21 19:30] LABS: CALCIUM 7.5 mg/dL (8.5-10.1); POTASSIUM 3.5 mmol/L (3.5-5.1)
[2021-08-21 19:36] LABS: ALBUMIN 2.4 g/dL (3.4-5.0); TOTAL BILIRUBIN 0.3 mg/dL (0.2-1.0)
[2021-08-21 19:58] LABS: URINE BLOOD 3+ (Negative); URINE CLARITY TURBID; URINE COLOR YELLOW; URINE GLUCOSE-RANDOM* NEGATIVE (Negative); URINE KETONES 2+ (Negative); URINE PROTEIN (DIPSTICK) 2+ (Negative); URINE SPECIFIC GRAVITY 1.015 (1.005-1.035)
[2021-08-21 20:13] LABS: ICTOTEST (BILI CONFIRMATORY) Negative (Negative); URINE BILIRUBIN NEGATIVE (Negative); URINE LEUKOCYTES-REFLEX 2+ (Negative); URINE NITRITE-REFLEX POSITIVE (Negative)
[2021-08-21 20:23] LABS: SQUAMOUS 4-10 Moderate /LPF (0-3)
[2021-08-21 20:24] LABS: MUCUS >6 Heavy strn/LPF (None Seen)
[2021-08-21 20:25] LABS: BACTERIA-REFLEX >30 Many /HPF (None Seen); CASTS None Seen /LPF (None Seen); URINE WBC-REFLEX >25 Many /HPF (0-5)
[2021-08-21 20:28] LABS: TRANSITIONAL EPITHEL CELL 0-3 Few /LPF (None Seen)
[2021-08-22] VITALS (20 sets, daily range): BP systolic 82–114; BP diastolic 35–64
--- NOTE | 2021-08-22 07:39 | EKG ---
[address] [address] ELECTROCARDIOGRAM REPORT Name: ISRRAEL CALDWELL Room #: 170-12 ADM IN M.R.#: [id number] Admission: 08/21/21 Attend Phys: Thomas Gibson MD Discharge: Date of : 71 Report #: [id number] [facility] ED Test Date: 2021-08-21 Test Time: 17:25:32 Pat Name: ISRRAEL CALDWELL Department: Room: 170 Gender: F Digital Marketing Executive: LISA : 1975 Requested By: Sergei Joel Order Number: [id number] MD: Chito Foley Measurements Intervals [place] Rate: 140 P: 92 NV: 130 QRS: 55 QRSD: 106 T: 12 QT: 314 QTc: 479 Interpretive Statements Sinus tachycardia Ventricular premature complex Aberrant complex Low voltage, precordial leads Compared to ECG 07/25/2021 22:22:08 Ventricular premature complex(es) now present Aberrant conduction of supraventricular beat(s) now present Low QRS voltage now present Electronically Signed On 08-22-2021 7:39:15 TRAINS SERVICE CONDUCTOR by Chito Foley [email or web address] <ELECTRONICALLY SIGNED> By: Chito Foley MD, FAC 08/22/21 0739 1725 Chito Foley MD, [facility] /EPI
--- NOTE | 2021-08-22 09:31 | NUR ---
[facility] TEAM CALLED FOR PICC LINE PLACEMENT. LEFT VM.
--- NOTE | 2021-08-22 15:34 | NUR ---
PICC LINE INSERTION NOTE. CONSENT OBTIANED FOR PROCEDURE. 1% LIDOCAINE USED FOR LOCAL. INITAILLY ACCESSED R BRACHIAL VEIN. UNABLE TO THREAD PICC AFTER MULTIPLE ATTEMPTS. L BASILIC VEIN ACCESSED AND PICC LINE THREADED WITH NO ISSUES. 47CM TOTAL LENTH, 2CM EXTERNAL. PICC TIP CONFIRMED WITH 3CG. PICC GOOD TO USE. PT REPORTS THAT SHE HAS HAD SEVERAL PREVIOUS PICC LINES IN [facility].
--- NOTE | 2021-08-22 16:45 | NUR ---
CONTACTED ORTHO CONSULT @1810 CONTACTED INFECTIOUS DISEASE CONSULT @4366
--- NOTE | 2021-08-22 17:09 | NUR ---
45 year old female presents to the ED on 08/21/21 with complaints of large wound on the left foot the patient reports appearing 1 week prior. Patient's caregiver directed the patient to the ED as wound has become progressively work. Patient also notes as being at the ED here at [facility] 2 weeks prior to a UTI. The patient admitted for SIRS with hypotension, chronic pain syndrome, anxiety, transverse myelitis. Patient last seen by CM on 07/28/21 and discharged home with [facility]. The father Victor M Gamez is the DPOA remains the main point of contact at [phone].
--- NOTE | 2021-08-22 18:55 | NUR ---
PT ARRIVED TO ICU FROM THE ER VIA ER BED PLUS 2 IV PUMPS WITH LEVO RUNNING AT 8MCG/MIN AND NS AT 126ML/HR. PT ON ROOM AIR, A&OX4, GCS OF 15. HAS NO COMPLAINTS AT THIS TIME. PATIENT TRANSFERRED OVER TO ICU BED VIA SLIDE SHEET, PT ATTACHED TO ICU MONITOR. ICU VITAL SIGNS TAKEN, LEVO INCREASED TO 9 MCG/MIN DUE TO HYPOTENSION. AFRIBLE, BLOOD SUGAR TAKEN, WITHIN NORMAL LIMITS. PATIENT RESTING COMFORTABLY AT THIS TIME IN BED.
--- NOTE | 2021-08-22 21:45 | NUR ---
Nursing Note At start of shift patient asking for oxy, xanax, and dilaudid; discussed that the dilaudid and xanax are q6 prn; and that they had just been given at 1740; pt upset; stating that "dilaudid and xanax are q4- and that's direct orders from the [facility]; I was just here; you all should have records of my MAR". disscussed with patient clinical picture including hypotension; pt argumentative; stating that at 0800 and 2000 oxy, dilaudid, and xanax are all given "and that's how the [facility] wants it"- unable to locate MAR in chart or on meditech to confirm; currently have a call to hospitalist. Ruiz PALACIOS RN
--- NOTE | 2021-08-22 23:40 | NUR ---
PT CALLED THIS RN (NURSING NECKTIE CENTRALIZING MACHINE OPERATOR) TO REQUEST TRANSFER TO . PT WAS STATING THAT SHE IS NOT GETTING HER HOME REGIMEN OF PAIN AND "SPASMODIC" MEDICATIONS. SUPPORT OFFERRED. PT STATED THAT SHE WANTED TO TRANSFER TO [facility]. CALL WAS MADE TO THEIR TRANSFER LINE AT THIS TIME. SPOKE WITH "SHAD" WHO STATED THAT THEY DO NOT CURRENTLY HAVE A BED AVAILABLE. WILL FAX PTS FACESHEET AND WILL PLACE HER NAME ON THEIR WAITING LIST FOR POSSIBLE TRANSFER AT A LATER TIME. PT APPEARS CALM AND AT REST. WILL ASK PTS BEDSIDE RN TO INFORM PT OF SITUATION.
[2021-08-23] VITALS (46 sets, daily range): BP systolic 82–129; BP diastolic 35–77
[2021-08-23 06:37] LABS: ABSOLUTE NEUTROPHILS 3.9 thou/uL (1.4-8.2); BASOPHILS 0.9 % (0.0-2.0); EOSINOPHILS 0.4 % (0.0-3.0); HEMATOCRIT 35.3 % (37.0-47.0); HEMOGLOBIN 11.6 gm/dL (12.0-15.0); LYMPHOCYTES 34.8 % (24.0-44.0); MCH 29.9 pg (26.0-34.0); MCHC 32.8 g/dL (28.0-37.0); MCV 91.2 fL (80.0-100.0); PLATELET COUNT 222 thou/uL (150-400); POLYS 60.9 % (36.0-66.0); RBC 3.86 mil/uL (4.20-5.00); RDW 14.9 % (10.5-14.5); WBC 6.4 thou/uL (4.0-11.0)
[2021-08-23 07:21] LABS: ALBUMIN 1.9 g/dL (3.4-5.0); CALCIUM 7.8 mg/dL (8.5-10.1); CREATININE 0.6 mg/dL (0.6-1.0); MAGNESIUM 1.1 mg/dL (1.8-2.4); POTASSIUM 3.3 mmol/L (3.5-5.1); TOTAL BILIRUBIN 0.3 mg/dL (0.2-1.0); TOTAL PROTEIN 5.4 g/dL (6.4-8.2)
--- NOTE | 2021-08-23 16:58 | NUR ---
[facility] updated and clinical update faxed as pt has been on service with them prior to admission. The pt is known to cm from an inpt stay last month and dc to home with hh on 07/28/21. She lives in a [place] rise [facility] with elev and is normally able to/from her w/c independently. She has HBCS 4.5 hrs a day to assist with homemaker chores. [facility] reports their nurse sent her to the hospital due to increased weakness and edema in her le. The pt had requested tx to [facility] last noc. Senior Administrative Assistant spoke with the [facility] tx nurse today and they are full and not accepting any pt requested transfers at this time. They do not have a wait list either due to being at high capacity. Pt remains in ICU and is being seen by ID, Wound care and surgery. Will follow along for resumption of hh at in.
--- NOTE | 2021-08-23 19:35 | NUR ---
Patient was taking to MRI and back with this RN. Dressing was placed on left foot per orders. Doran was changed. Patient is resting in bed with call pennington in reach.
[2021-08-24] VITALS (43 sets, daily range): BP systolic 92–138; BP diastolic 47–87
--- NOTE | 2021-08-24 00:28 | HC ---
[facility] [address] [address] CONSULTATION Name: ISRRAEL CALDWELL Room #: 246-P ADM IN M.R.#: [id number] Admission: 08/21/21 Attend Phys: Leticia Petersen Discharge: Date of : 71 Report #: [id number] THIS REPORT FOR: cc: NIKKI - No family physician/PCP NIKKI - No family physician/PCP Jose Elias Stark MD ~ DATE OF SERVICE: 08/22/2021 INFECTIOUS DISEASE CONSULTATION REASON FOR CONSULTATION: I was asked to evaluate concerning septic shock. HISTORY OF PRESENT ILLNESS: The patient is a 45-year-old who is paraplegic due to transverse myelitis in the remote past. She has had issues with pressure wounds and infection associated, also with recurrent urinary tract infections and she has indwelling Doran catheter and neurogenic bladder. Last hospitalized in mid July with urinary tract infection and a pressure wound to her left heel. After 2 days of intravenous antibiotics, she was discharged on cefdinir. No positive cultures were identified. She had mixed bob from her urine. It was felt that she had a complicated urinary tract infection and a pressure wound to her left heel. She also had rhabdomyolysis with acute kidney injury due to her being on the floor for an extended period of time. She also has a chronic pain syndrome and anxiety. Following discharge, she completed her course of antibiotic therapy and returns now with profound fatigue, generalized weakness, dark colored urine with odor along with progressive wound to her left lateral posterior foot with moderate amount of drainage. REVIEW OF SYSTEMS: She denies any significant cough or sputum production. No chest pain or palpitations. No headache. No nausea, vomiting. Her colostomy is functioning well. No other new ulcerations. No trauma. A 14-point review of system was negative other than what has been described above. PAST MEDICAL HISTORY: Excessive opioid use, transverse myelitis, ovarian cyst, UTI, paraplegia, seizure disorder, hypertension, anxiety, cutaneous flap to her pelvic wound. FAMILY HISTORY: Kidney disease. SOCIAL HISTORY: Smoker of cigarettes. Denies any alcohol or recreational drug use. Lives on her own with home health assistance. ALLERGIES: TYLENOL, LORAZEPAM, MORPHINE, HYDROCODONE, PROCHLORPERAZINE. MEDICATIONS: As noted on her NOV. PHYSICAL EXAMINATION: [facility] [address] [place] [address] CONSULTATION Name: ISRRAEL CALDWELL Room #: [address] [place] [address] IN M.R.#: [id number] Admission: 08/21/21 Attend Phys: Leticia Petersen Discharge: Date of : 71 Report #: [id number] GENERAL: Afebrile and hemodynamically stable, on Levophed drip. She was alert, cooperative and pleasant, in no acute distress, lying in bed, eating Jell-O. SKIN: With extensive wound and purulent drainage from her left lateral hindfoot. There is no surrounding erythema or fluctuance. Could not palpate bone. No palpable adenopathy. HEENT: Eyes without scleral icterus. Mouth without mucositis. NECK: Supple. LUNGS: Clear. HEART: Regular, without murmur. ABDOMEN: Soft. No mass appreciated. Colostomy site mucosa within normal limits, formed stool in the bag. Indwelling Doran catheter was in place. She was paraplegic. PSYCHIATRIC: Mood without anxiety. LABORATORY DATA: Reviewed. MICROBIOLOGY: Reviewed. IMAGING: CT scan of lower extremity reviewed. IMPRESSION: A 45-year-old with septic shock due to urinary tract source versus left heel. She had mixed bob identified last month. We will need to recheck this along with her blood cultures. She will need fluid resuscitation and vasopressors as appropriate. The patient will be transported from the Emergency Room to ICU. Continue with dressing changes for left heel wound and IV antibiotic therapy. Change her Doran catheter. Supportive care for her paraplegia. She also has osteomyelitis of the left fourth MTP region and extensive wounds to the hindfoot, which will need further debridement by Orthopedic Surgery. RECOMMENDATIONS: 1. Broad antibiotic coverage while awaiting cultures from blood, urine and wound. 2. Orthopedic Surgery evaluation of her left foot. 3. Change Doran catheter. 4. Continue full ICU support with fluids and vasopressors as necessary. <ELECTRONICALLY SIGNED> By: Jose Elias Stark MD 08/24/21 0028 [id number] Jose Elias Stark MD /nt
[2021-08-24 06:41] LABS: HEMATOCRIT 31.4 % (37.0-47.0); HEMOGLOBIN 10.5 gm/dL (12.0-15.0); MCH 30.6 pg (26.0-34.0); MCHC 33.5 g/dL (28.0-37.0); MCV 91.2 fL (80.0-100.0); RBC 3.44 mil/uL (4.20-5.00); RDW 15.4 % (10.5-14.5)
[2021-08-24 06:52] LABS: CALCIUM 7.9 mg/dL (8.5-10.1); CREATININE 0.6 mg/dL (0.6-1.0); POTASSIUM 3.3 mmol/L (3.5-5.1)
--- NOTE | 2021-08-24 10:24 | NUR ---
WOUND CARE F/U; ROUNDING WITH KATHLEEN RAMIREZ. THE PATIENT HAS A LEFT ANKLE WOUND APPROX 6 X 6 X 0.4 WE ARE CURRENTLY ARE USING DAKINS MOIST GAUZE,ABD,KERLIX. WHICH REMAINS APPROPRIATE TODAY. THE PATIENT IS ENGAGED WITH HER AFFAIRS ON THE PHONE WHILE HERE IN THE ICU TODAY. EDUCATION RELATED TO THE CARE OF THIS WOUND WAS DISCUSSED. THERE WAS ALSO A WOUND PROXIMAL TO THE HEEL WOUND APPROX 1.5 X 1.5 COVERED WITH A SCAB WHICH SEEMS STABLE.
--- NOTE | 2021-08-24 11:35 | NUR ---
SW reviewed chart and spoke with nursing and attending physician. Case also discussed during ICU rounds. Pt had MRI yesterday to r/o osteo. Pt is on IV abx. ID and wound care following. Pt is on levophed. Pt to transfer out of ICU when off levo. Plan is for pt to discharge home and resume HH services through [facility]. GUY is following to assist as needed with discharge planning.
--- NOTE | 2021-08-24 23:20 | NUR ---
Transfer Note Patient transferred to room 200; belongings with patient; report given. vss; pt resting comfortably. Ruiz PALACIOS RN
--- NOTE | 2021-08-25 04:12 | NUR ---
ASSESSMENTS CHARTED, MEDS CHARTED GIVEN. PATIENT TRANSFERED FROM ICU TO CCU PRIOR TO MIDNIGHT. PATIENT ALERT AND ORIENTED, VERY PLEASANT. MAINTENANCE MEDS AND ABX STARTED UPON ARRIVAL. PT ABLE TO TURN HERSELF. LEFT FOOT WOUND DRESSED. PLAN IS FOR PATIENT TO RETURN HOME WITH HOME HEALTH WHEN STABLE.
[2021-08-25 05:36] VITALS: BP 123/76
[2021-08-25 07:15] VITALS: BP 123/85
[2021-08-25 11:14] VITALS: BP 120/81
--- NOTE | 2021-08-25 12:32 | NUR ---
CM REVIEWED PT CHART AND DISCUSSED WITH CARE TEAM. MET WITH PT AT BEDSIDE THIS DAY. PT CONFIRMS HER PLAN IS TO DC HOME WITH [facility]. UPDATES SENT VIA FAX. PT DISCHARGE PLAN TO DC WITH IV ABTS. PT REPORTS SHE IS COMFORTABLE ADMINISTERING IV ABTS AT HOME AND HAS DONE SO IN THE PAST. SHE DOES NOT REMEMBER WHAT COMPANY SHE USED FOR INFUSIONS. OPTIONS GIVEN TO PT. REFERRAL SENT TO [facility] AND AWAITING BENEFIT COVERAGE. CM CONTINUE TO FOLLOW.
--- NOTE | 2021-08-25 13:31 | NUR ---
RECEIVED MESSAGE FROM [employer] THAT PT IS 100% COVERED FOR INFUSION DRUGS AND SUPPLIES. CM FOLLOWING.
[2021-08-25 15:41] VITALS: BP 115/67
[2021-08-25 15:43] VITALS: BP 112/79
[2021-08-25 19:14] VITALS: BP 129/85
[2021-08-26] VITALS (7 sets, daily range): BP systolic 109–133; BP diastolic 63–87
--- NOTE | 2021-08-26 03:19 | NUR ---
PT IS ALERT AND ORIENTED X4. LUNGS ARE CLEAR ON ROOM AIR. ABDOMEN IS ROUND BOWEL SOUNDS ACTIVE. PT HAS A COLOSTOMY BAG. PT IS PARALYZED. WOUND CARE DONE TO LEFT HEEL. PT WEARS PARFO BOOTS ON BILATERAL. PT TAKES PAIN MEDS FOR BACK PAIN VERTEBRAE WITH RELIEF. AND XANX FOR ANXIETY. REST AND WATCHES TV DURING THE NIGHT CALL LIGHT WITHIN REACH IF NEEDS ASSISTANCE PER STAFF
[2021-08-26 06:32] LABS: HEMATOCRIT 31.6 % (37.0-47.0); HEMOGLOBIN 10.5 gm/dL (12.0-15.0); MCH 30.2 pg (26.0-34.0); MCHC 33.1 g/dL (28.0-37.0); MCV 91.1 fL (80.0-100.0); RBC 3.47 mil/uL (4.20-5.00); WBC 4.2 thou/uL (4.0-11.0)
[2021-08-26 06:48] LABS: CALCIUM 8.2 mg/dL (8.5-10.1); CREATININE 0.6 mg/dL (0.6-1.0); TOTAL BILIRUBIN 0.1 mg/dL (0.2-1.0); TOTAL PROTEIN 5.7 g/dL (6.4-8.2)
--- NOTE | 2021-08-26 11:05 | NUR ---
Assumed care of pt this AM. Pt is A&O X4, on RA, SR on the monitor. Pt c/o pain in lower extremities. Given PRN medication. Wound care & ostomy change completed w/ wound care nurse. Doran in place, patent & draining yellow urine. Plan for discharge today. Fall precautions in place. Frequent rounding in place.
--- NOTE | 2021-08-26 16:35 | NUR ---
PT SWITCHED TO ONCE A DAY ABTS PER ID. LOGANTA HERE TO DO BEDSIDE TEACHING AT BEDSIDE. ORDERS FAXED TO [facility] TO RESUME HH SERVICES. TRANSPORTATION ARRANGED [facility]IA [facility] AND WILL ARRIVE TO PICK PT UP AT 1630.
--- NOTE | 2021-08-26 17:19 | NUR ---
PT PCP IS ALIREZA BURGESS WITH [facility]
--- NOTE | 2021-08-27 11:01 | HC ---
[facility] [place] [address] [address] [place] [address] CONSULTATION Name: ISRRAEL CALDWELL Room #: 200-I [facility] IN M.R.#: [id number] Admission: 08/21/21 Attend Phys: Leticia Edinson Petersen Discharge: 08/26/21 Date of : 71 Report #: [id number] THIS REPORT FOR: cc: FAM - No family physician/PCP FAM - No family physician/PCP Donaldo Guan MD ~ DATE OF SERVICE: 08/23/2021 CHIEF COMPLAINT: Left lateral foot and heel ulceration. HISTORY OF PRESENT ILLNESS: This is a 45-year-old female patient with a history of transverse myelitis and resultant paraplegia who was admitted to the hospital with severe sepsis. She is in the ICU. She was noted to have significant ulceration of her left lateral foot and heel. I have been asked to see her with regard to wound care. She was apparently briefly here at [facility] in July. She was discharged home at that time. She was scheduled to see Dr. Jasper Muñiz at [facility]. It is unclear as to whether she had begun care there or not. She is admitted now with significant urinary tract infection as well as possible infection of the left foot and I have been asked to see her with regard to wound care. PAST MEDICAL HISTORY: Positive for history of opioid use, transverse myelitis in resulting paraplegia, ovarian cyst, sepsis, UTI, paraplegia, seizure disorder, hypertension and anxiety. She has had prior skin flap closure to a pressure ulcer in her coccygeal region. SOCIAL HISTORY: The patient is a daily smoker with a [id number] history of smoking. She normally lives at home. FAMILY HISTORY: Positive for renal disease. MEDICATIONS: At this time includes alprazolam, cefepime, famotidine, hydromorphone, norepinephrine, ondansetron, oxycodone, vancomycin, and zolpidem. ALLERGIES: Include prochlorperazine, hydrocodone, lorazepam, morphine, acetaminophen. REVIEW OF SYSTEMS: CONSTITUTIONAL: The patient denies fever, chills or weight loss. NEUROLOGICAL: The patient has paraplegic. Denies any new focal weakness, numbness, tingling. EYES: The patient denies visual changes, redness or drainage. ENT: The patient denies earache, nasal drainage, sore throat. CARDIOVASCULAR: The patient denies chest pain, palpitations, diaphoresis. PULMONARY: No cough, shortness of breath. GASTROINTESTINAL: The patient denies nausea, vomiting, diarrhea or abdominal [address] [address] CONSULTATION Name: ISRRAEL CALDWELL Room #: 200-I [facility]#: [id number] Admission: 08/21/21 Attend Phys: Leticia Petersen Discharge: 08/26/21 Date of : 71 Report #: [id number] pain.. ORTHOPEDIC: The patient is aware of ulceration on her left foot. Others systems in a 14-point review of systems are negative. PHYSICAL EXAMINATION: VITAL SIGNS: Includes temperature 98.0, pulse 81, respiratory rate of 20, blood pressure 116/68. GENERAL: This is a chronically ill-appearing female patient who appears in minimal distress. HEENT: Head normocephalic. Nose and throat clear. NECK: Supple. LUNGS: Clear. ABDOMEN: Soft. EXTREMITIES: Lower extremities demonstrate flexion contractures at the knees and hips as well as some spasticity in both lower extremities. Examination of the lower extremities additionally demonstrates significant pressure ulceration to the left lateral foot and heel. There is some eschar, some slough, some fibrin noted as well, some granulation tissue. We are very close to bony structures, although no direct bone is palpable. There is some tunneling and undermining posteriorly on the heel as well. There is some odor and drainage present. NEUROLOGIC: The patient has paraplegia, is awake, alert and oriented. LABORATORY STUDIES: Include white blood cell count of 6.4 with a hemoglobin of 11.6, hematocrit of 35.3. Sodium 140, potassium 3.3, chloride 108, CO2 of 23, BUN 6, creatinine 0.6, albumin is 1.9. CLINICAL IMPRESSION: 1. Stage IV pressure ulceration to the left heel with possible underlying osteomyelitis and concurrent wound infection. 2. Severe protein-calorie malnutrition. 3. Paraplegia with lower extremity contractures due to prior transverse myelitis. RECOMMENDATIONS: At this point in time, a culture and sensitivity has already been obtained, results are pending. She is scheduled to have an MRI of the lower extremity later today. From this point, we can evaluate whether she has actual underlying osteomyelitis or deeper space abscess. She may require surgical intervention, possible amputated surgery would be a consideration. Recommendations in the short term, she will need low air loss surface with q. 2 hour turning and positioning. We will use 1/4 strength Dakin's moist gauze to the foot with a Kerlix secondary dressing. Additional decision making will be forthcoming upon review of the MRI and discussion with other team members [address] [address] CONSULTATION Name: ISRRAEL CALDWELL Room #: 200-I [facility] IN M.R.#: [id number] Admission: 08/21/21 Attend Phys: Leticia Petersen Discharge: 08/26/21 Date of : 71 Report #: [id number] including Infectious Disease and Orthopedics. I appreciate being asked to see her in consultation. <ELECTRONICALLY SIGNED> By: Donaldo Guan MD 08/27/21 1101 [id number] Donaldo Guan MD /nt
== END 2021-08-26 18:03 | disposition home health service (06) | DRG 871 ==
LOC: ER 17:08 → EROBS 23:23 → ICU 23:23 → EROBS 23:24 → ICU 08-22 18:36 → 2N 08-24 23:13
PROVIDERS: Emergency Medicine; Internal Medicine; ADMIT Hospitalist; ATTEND Hospitalist
PROC: 05HY33Z Insertion of Infusion Device into Upper Vein, Percutaneous Approach (ICD-10-PCS; principal; 2021-08-22)
DX: A41.9 Sepsis, unspecified organism (principal); L89.894 Pressure ulcer of other site, stage 4; L89.624 Pressure ulcer of left heel, stage 4; R65.21 Severe sepsis with septic shock; E43 Unspecified severe protein-calorie malnutrition; G82.20 Paraplegia, unspecified; M86.8X6 Other osteomyelitis, lower leg; N39.0 Urinary tract infection, site not specified; G37.3 Acute transverse myelitis in demyelinating disease of central nervous system; T83.511A Infection and inflammatory reaction due to indwelling urethral catheter, initial encounter; G89.4 Chronic pain syndrome; E87.6 Hypokalemia; E83.42 Hypomagnesemia; G40.909 Epilepsy, unspecified, not intractable, without status epilepticus; G47.00 Insomnia, unspecified; F32.9 Major depressive disorder, single episode, unspecified; F41.9 Anxiety disorder, unspecified; E78.5 Hyperlipidemia, unspecified; I10 Essential (primary) hypertension; F17.210 Nicotine dependence, cigarettes, uncomplicated; M24.575 Contracture, left foot; N31.9 Neuromuscular dysfunction of bladder, unspecified; Y83.8 Other surgical procedures as the cause of abnormal reaction of the patient, or of later complication, without mention of misadventure at the time of the procedure; Z88.7 Allergy status to serum and vaccine; Y92.89 Other specified places as the place of occurrence of the external cause; Z88.6 Allergy status to analgesic agent; Z84.1 Family history of disorders of kidney and ureter
CPT/HCPCS: 10078; 10081

== ENCOUNTER 2021-10-08 01:31 | Inpatient (IN) | payer OTHER ==
[~2021-10-08] VITALS: Ht 162.6 cm; Wt 80.7 kg
--- NOTE | ~2021-10-08 | EMS ---
[address] [address] EMS Patient Care Report Name: ISRRAEL CALDWELL Room #: REG BENIGNO Diaz#: [id number] Admission: 10/08/21 Attend Phys: Discharge: Date of : 71 Report #: [id number] THIS REPORT FOR: //name// Report Transmitted: 10/08/2021 01:16 EMS Care Summary [facility] [id number] @ 10/08/2021 00:32 Incident Location [address] [place] [address] Patient ISRRAEL CALDWELL Female, 46 Years 1975 Patient Address [address] [place] [address] Patient History Other, Patient Allergies Morphine,Vicodin,Compazine, Patient Medications OxyContin, Dilaudid, Cefazolin, Atorvastatin, Chief Complaint Nausea and vomiting Disposition Transported No Lights/Hector Dispatch Reason Sick Person Transported To [facility] Narrative S51 responded non-emergent to sick person dispatch. S51 arrived to residence to find patient lying supine in bed. Patient was alert. Airway was patent. [address] [address] EMS Patient Care Report Name: ISRRAEL CALDWELL [id number] Admission: 10/08/21 Attend Phys: Discharge: Date of : 71 Report #: [id number] breathing was regular and non-labored. Skin was pink, warm, and dry. Peripheral pulses were strong, regular and equal. Patient was A&Ox4 with a GCS of 15. Patient complained of nausea, vomiting, watery stool in colostomy bag for the past two weeks since she's been placed on antibiotics due to an infection caused by complications transverse myelitis. She stated that since she has been on these antibiotics she has been vomiting everything she ingests for the past two weeks. Patient's heart rate showed sinus tachycardia. Assessment revealed no other abnormalities. S51 called P51 for lift assist. P51 arrived and moved patient from bed to cot using sheet. Patient secured with seatbelts and moved to the ambulance. Patient had no palpable veins to start IV. Reassessed patient en route to the hospital. Transported non-emergent to [facility]. Arrived without incident. Transferred patient care to ESTEBAN Herrera in room 8 Initial Vitals @01:19R: 14,Pain: 4/10,GCS: 15,SpO2: 98, @00:47P: 134,R: 14,BP: 113/72,Pain: 4/10,GCS: 15,Glucose: 126,SpO2: 94,Revised Trauma: 12, @01:15P: 143,R: 14,Pain: 4/10,GCS: 15,SpO2: 97, @01:21P: 136,R: 14,BP: 136/92,Pain: 4/10,GCS: 15,SpO2: 96,Revised Trauma: 12, @01:09P: 146,R: 14,Pain: 4/10,GCS: 15,SpO2: 97, Impression Nausea Procedures @01:19 12-Lead ECG @01:09 3-Lead ECG @01:21 IV Therapy - cc () @00:42 ALS Assessment Response: UnchangedSucceeded Timeline 00:31,Call Received 00:31,Psap Call 00:32,Dispatched 00:36,En Route 00:38,Initial Responder On Scene 00:38,On Scene 00:40,At Patient 00:42,ALS Assessment,Response: UnchangedSucceeded, 00:47,BP: 113/72 M,PULSE: 134,RR: 14 R,SPO2: 94 Ox,ETCO2: ,B,PAIN: 4,GCS: 15, 01:09,3-Lead ECG, 01:09,BP: / M,PULSE: 146,RR: 14 R,SPO2: 97 Ox,ETCO2: ,BG: ,PAIN: 4,GCS: 15, [facility] [address] [place] [address] EMS Patient Care Report Name: ISRRAEL CALDWELL Room #: REG Erika.#: [id number] Admission: 10/08/21 Attend Phys: Discharge: Date of : 71 Report #: [id number] 01:13,Depart Scene 01:15,BP: / M,PULSE: 143,RR: 14 R,SPO2: 97 Ox,ETCO2: ,BG: ,PAIN: 4,GCS: 15, 01:19,12-Lead ECG, 01:19,BP: / M,PULSE: ,RR: 14 R,SPO2: 98 Ox,ETCO2: ,BG: ,PAIN: 4,GCS: 15, 01:21,IV Therapy - cc Site: , 01:21,BP: 136/92 M,PULSE: 136,RR: 14 R,SPO2: 96 Ox,ETCO2: ,BG: ,PAIN: 4,GCS: 15, 01:28,At Destination 01:29,Transfer Patient 01:54,Call Closed Disclaimer v1.1 Copyright 2021 [employer] This EMS Care Summary contains data elements from the applicable legal record (which may be displayed differently). It is designed to provide pertinent information for the following purposes: continuity of care, clinical quality, and state data reporting. The complete legal record is available to ED staff and administrators of the receiving hospital in [employer]'s Patient Tracker. All data is provided "as is."
--- NOTE | ~2021-10-08 | EMS ---
[address] [address] EMS Patient Care Report Name: ISRRAEL CALDWELL Room #: REG Emily#: [id number] Admission: 10/08/21 Attend Phys: Discharge: Date of : 71 Report #: [id number] THIS REPORT FOR: //name// Report Transmitted: 10/08/2021 02:20 EMS Care Summary [facility] Incident [id number] @ 10/08/2021 00:32 Incident Location [address] [place] [address] Patient ISRRAEL CALDWELL Female, 46 Years 1975 Patient Address [address] [place] [address] Patient History Other, Patient Allergies Morphine,Vicodin,Compazine, Patient Medications OxyContin, Dilaudid, Cefazolin, Atorvastatin, Chief Complaint Nausea and vomiting Disposition Transported No Lights/[place] Dispatch Reason Sick Person Transported To [facility] Narrative S51 responded non-emergent to sick person dispatch. S51 arrived to residence to find patient lying supine in bed. Patient was alert. Airway was patent. [address] [address] EMS Patient Care Report Name: ISRRAEL CALDWELL [id number] Admission: 10/08/21 Attend Phys: Discharge: Date of : 71 Report #: [id number] breathing was regular and non-labored. Skin was pink, warm, and dry. Peripheral pulses were strong, regular and equal. Patient was A&Ox4 with a GCS of 15. Patient complained of nausea, vomiting, watery stool in colostomy bag for the past two weeks since she's been placed on antibiotics due to an infection caused by complications transverse myelitis. She stated that since she has been on these antibiotics she has been vomiting everything she ingests for the past two weeks. Patient's heart rate showed sinus tachycardia. Assessment revealed no other abnormalities. S51 called P51 for lift assist. P51 arrived and moved patient from bed to cot using sheet. Patient secured with seatbelts and moved to the ambulance. Patient had no palpable veins to start IV. Reassessed patient en route to the hospital. Transported non-emergent to [facility]. Arrived without incident. Transferred patient care to ESTEBAN Herrera in room 8 Initial Vitals @01:19R: 14,Pain: 4/10,GCS: 15,SpO2: 98, @00:47P: 134,R: 14,BP: 113/72,Pain: 4/10,GCS: 15,Glucose: 126,SpO2: 94,Revised Trauma: 12, @01:15P: 143,R: 14,Pain: 4/10,GCS: 15,SpO2: 97, @01:21P: 136,R: 14,BP: 136/92,Pain: 4/10,GCS: 15,SpO2: 96,Revised Trauma: 12, @01:09P: 146,R: 14,Pain: 4/10,GCS: 15,SpO2: 97, Impression Nausea Procedures @01:19 12-Lead ECG @01:09 3-Lead ECG @01:21 IV Therapy - cc () @00:42 ALS Assessment Response: UnchangedSucceeded Timeline 00:31,Call Received 00:31,Psap Call 00:32,Dispatched 00:36,En Route 00:38,Initial Responder On Scene 00:38,On Scene 00:40,At Patient 00:42,ALS Assessment,Response: UnchangedSucceeded, 00:47,BP: 113/72 M,PULSE: 134,RR: 14 R,SPO2: 94 Ox,ETCO2: ,B,PAIN: 4,GCS: 15, 01:09,3-Lead ECG, 01:09,BP: / M,PULSE: 146,RR: 14 R,SPO2: 97 Ox,ETCO2: ,BG: ,PAIN: 4,GCS: 15, [facility] [address] [place] [address] EMS Patient Care Report Name: ISRRAEL CALDWELL Room #: REG [facility].#: [id number] Admission: 10/08/21 Attend Phys: Discharge: Date of : 71 Report #: [id number] 01:13,Depart Scene 01:15,BP: / M,PULSE: 143,RR: 14 R,SPO2: 97 Ox,ETCO2: ,BG: ,PAIN: 4,GCS: 15, 01:19,12-Lead ECG, 01:19,BP: / M,PULSE: ,RR: 14 R,SPO2: 98 Ox,ETCO2: ,BG: ,PAIN: 4,GCS: 15, 01:21,IV Therapy - cc Site: , 01:21,BP: 136/92 M,PULSE: 136,RR: 14 R,SPO2: 96 Ox,ETCO2: ,BG: ,PAIN: 4,GCS: 15, 01:28,At Destination 01:29,Transfer Patient 01:54,Call Closed Disclaimer v1.1 Copyright 2021 [employer] This EMS Care Summary contains data elements from the applicable legal record (which may be displayed differently). It is designed to provide pertinent information for the following purposes: continuity of care, clinical quality, and state data reporting. The complete legal record is available to ED staff and administrators of the receiving hospital in [employer] Patient Tracker. All data is provided "as is."
[2021-10-08 01:31] VITALS: BP 126/79
[2021-10-08 02:10] LABS: HEMATOCRIT 38.3 % (37.0-47.0); HEMOGLOBIN 12.6 gm/dL (12.0-15.0); MCH 28.6 pg (26.0-34.0); MCHC 32.9 g/dL (28.0-37.0); MCV 86.8 fL (80.0-100.0); PLATELET COUNT 340 thou/uL (150-400); RBC 4.41 mil/uL (4.20-5.00); RDW 16.9 % (10.5-14.5); WBC 27.8 thou/uL (4.0-11.0)
[2021-10-08 02:13] LABS: CREATININE 4.7 mg/dL (0.6-1.0); POTASSIUM 3.9 mmol/L (3.5-5.1)
[2021-10-08 02:24] LABS: ALBUMIN 3.6 g/dL (3.4-5.0); DIRECT BILIRUBIN 0.3 mg/dL (<0.1-0.2); TOTAL BILIRUBIN 0.6 mg/dL (0.2-1.0)
[2021-10-08 03:06] LABS: ABSOLUTE NEUTROPHILS 23.1 thou/uL (1.4-8.2); ANISOCYTOSIS 1+; ATYPICAL LYMPHS 1 %; LARGE PLATELETS OCCASIONAL
[2021-10-08 07:50] VITALS: BP 129/85
[2021-10-08 08:00] VITALS: BP 147/83
--- NOTE | 2021-10-08 12:19 | NUR ---
Pt transferred to unit from ED approx 0800. Pt a&ox4. PICC line in place from [facility]. IV team aware. IVF and IV antibiotics infusing. Blood cultures positive for gram negative rods. Infesctious disease doctor and hospitalist aware. Stool sample for C-diff and MRSA swab sent to lab. Medical records requsted from [facility]. Call light within reach. Fall precautions in place. Will continue to monitor.
--- NOTE | 2021-10-09 04:50 | HC ---
[facility] [place] [address] CONSULTATION Name: ISRRAEL CALDWELL Room #: 441- ADM IN M.R.#: [id number] Admission: 10/08/21 Attend Phys: Isaac Siddiqui MD Discharge: Date of : 71 Report #: [id number] THIS REPORT FOR: cc: Jori Lehman MD. Jori Lehman MD. Bret Haro MD ~ DATE OF SERVICE: 10/08/2021 INFECTIOUS DISEASE CONSULTATION ATTENDING PHYSICIAN: Dr. Siddiqui. REASON FOR EVALUATION: Sepsis, complicated by multiorgan dysfunction. HISTORY OF PRESENT ILLNESS: Chart reviewed. The patient examined. This is a 46-year-old woman with a 7-day history of transverse myelitis, who was recently hospitalized at a different facility. She believes she was diagnosed with significant __ infection, although she does not have the details. She was discharged on IV antibiotics. Reportedly, cefazolin 3 times daily for 2 weeks. She noted last dose was on 10/06/2021. She noted the onset of nausea, emesis throughout the entirety of the course of the treatment. She has basically had refractory emesis as well as diarrhea. It is not clear if she had any recent fevers, chills. Clearly had poor p.o. intake. Denies any pulmonary related complaints. Due to her worsening situation, she did present to the Emergency Room, was found to have markedly abnormal labs including a creatinine elevated at 4.7. CBC: White count 27.8, platelet count of 340. Lactic acid 1.5. CT abdomen and pelvis showed notable diverting colostomy. Doran catheter in place. She was tachycardic, although not hypotensive. She was initiated on therapy with vancomycin and Zosyn. ALLERGIES: LISTED TO COMPAZINE, VICODIN, ATIVAN, MORPHINE. CURRENT MEDICATIONS: Include vancomycin, meropenem, pantoprazole, and ondansetron. PAST MEDICAL HISTORY: As noted above, history of transverse myelitis diagnosed roughly 7-8 years ago with paraplegia prompted a diverting colostomy, neurogenic bladder with Doran catheter, bipolar disorder, chronic pain syndrome, depression. SOCIAL HISTORY: Smokes cigarettes, 94-wgrk-irdy history. No illicit drug use. No ethanol. FAMILY HISTORY: Noncontributory. REVIEW OF SYSTEMS: Otherwise, unremarkable. [address] [address] CONSULTATION Name: ISRRAEL CALDWELL Room #: [address] [place] [address] IN .R.#: [id number] Admission: 10/08/21 Attend Phys: Isaac Siddiqui MD Discharge: Date of : 71 Report #: [id number] PHYSICAL EXAMINATION: GENERAL: She is alert, cooperative. She is anxious, moderate to marked distress and is frequently spitting out oral secretions. VITAL SIGNS: Temperature 98.5, pulse 113, respirations 16, blood pressure 147/83. SKIN: Warm, dry, no rashes. HEENT: Normocephalic. Extraocular muscles intact. NECK: Supple. LUNGS: Diminished breath sounds overall generally clear. HEART: Borderline tachycardic, regular. I do not appreciate murmur. ABDOMEN: Firm, somewhat distended. No percussible tenderness or evidence of peritoneal signs. GENITOURINARY AND RECTAL: Deferred. LABORATORY DATA: test was negative. Electrolytes: Sodium 135, potassium 3.9, chloride 92, bicarbonate is 32, anion gap of 11, BUN and creatinine 19 and 4.7, glucose 122, AST of 12. Lipase of 80. Total bilirubin of 0.6, total protein of 9, albumin of 3.6. CBC: White count 27.8, H and H 12.6 and 38.3, platelets of 340. Lactic acid 1.5. CT abdomen and pelvis showed fluid-filled stomach and small hiatal hernia, fluid filled small bowel without evidence of high-grade obstruction, question of ileus, diverting colostomy, Doran catheter. Degenerative changes involving the lumbar spine. Coronavirus testing was negative. ASSESSMENT AND PLAN: Nausea, emesis with multiorgan function, most prominently the renal failure, certainly raises question of an adverse drug effect. She has been off it for a number of days. We will try to obtain records. It is not entirely clear, although having plan to stop the antibiotics will be mindful of any ongoing issues in terms of possible adverse drug effects. We will check urinalysis. Blood cultures are pending. Continue to monitor expectantly. <ELECTRONICALLY SIGNED> By: Bret Haro MD 10/09/21 [id number] Bret Haro MD /nt
[2021-10-09 05:42] LABS: ALBUMIN 2.5 g/dL (3.4-5.0); CALCIUM 8.2 mg/dL (8.5-10.1); MAGNESIUM 1.9 mg/dL (1.8-2.4); POTASSIUM 3.7 mmol/L (3.5-5.1); TOTAL BILIRUBIN 0.3 mg/dL (0.2-1.0); TOTAL PROTEIN 6.9 g/dL (6.4-8.2)
[2021-10-09 06:56] VITALS: BP 109/71
--- NOTE | 2021-10-09 08:34 | NUR ---
PT LYING IN BED. DILAUDID PROVIDING PAIN RELIEF. RESTING COMFORTABLY. NO NEEDS VOICED. CALL LIGHT WITHIN REACH. FREQUENT OBSERVATION.
--- NOTE | 2021-10-09 09:54 | NUR ---
Assumed care of pt at 0700. Pt a&ox4. IVF infusing. Pain and nausea controlled with prn medications. Poor appetite. Call light within reach. Fall precautions in place. Will continue to monitor.
[2021-10-09 13:03] LABS: ABSOLUTE NEUTROPHILS 8.4 thou/uL (1.4-8.2); BASOPHILS 0.9 % (0.0-2.0); EOSINOPHILS 2.2 % (0.0-3.0); HEMATOCRIT 29.6 % (37.0-47.0); LYMPHOCYTES 16.7 % (24.0-44.0); MCHC 33.2 g/dL (28.0-37.0); MCV 87.4 fL (80.0-100.0); MONOCYTES 6.9 % (1.0-8.0); POLYS 73.3 % (36.0-66.0); RBC 3.38 mil/uL (4.20-5.00); RDW 16.5 % (10.5-14.5)
[2021-10-09 13:10] LABS: HEMOGLOBIN 9.8 gm/dL (12.0-15.0); PLATELET COUNT 191 thou/uL (150-400); WBC 11.5 thou/uL (4.0-11.0)
[2021-10-09 20:08] VITALS: BP 121/83; BP 127/87
[2021-10-10 07:26] VITALS: BP 129/80
[2021-10-10 08:08] VITALS: BP 129/80
--- NOTE | 2021-10-10 08:32 | NUR ---
PT LYING IN BED. DILAUDID PROVIDING PAIN RELIEF. RESTING COMFORTABLY. NO NEEDS VOICED. CALL LIGHT WITHIN REACH.FREQUENT OBSERVATION.
--- NOTE | 2021-10-10 12:28 | NUR ---
bird catheter leaking; bulb at 30+ ml, replaced bird with 22 fr./ 30 ml balloon.
--- NOTE | 2021-10-10 12:29 | NUR ---
0800 informed of tele monitor not working; telegraph equipment maintainer came to try and recalibrate, no success. informed that they will hopefully have a monitor for that room tomorrow. tech informed staff that we should not be using other room monitors because it messes up the connections. orders to d/c tele given
[2021-10-10 16:25] VITALS: BP 135/90
[2021-10-10 20:40] VITALS: BP 115/76
--- NOTE | 2021-10-11 03:38 | NUR ---
ASSESSMENT COMPLETED. PT WANTED A PAIN SHOT AT THE START OF SHIFT TO GET PAIN TO WHERE IT CAN BE CONTROLLED-PT REMINDED THAT SHE HAS PO DIULADID AVAILABLE EVERY 4 HRS. PT REPORTS SPASMS IN LEGS. COLOSTOMY WITH DARK LIQUIDY STOOL. U/O IS LIGHT YEELLOW. PT IS AFEBRILE. SCARS MOSTLY IN THE LEGS.TAKING DIFFERENT SNACKS THRO NOC BUT ALSO ASKING FOR ANTI EMETICS.VSS.CALLS WITH NEEDS.
[2021-10-11 04:48] VITALS: BP 130/89
[2021-10-11 06:23] LABS: HEMATOCRIT 29.7 % (37.0-47.0); HEMOGLOBIN 9.7 gm/dL (12.0-15.0); MCH 28.9 pg (26.0-34.0); MCHC 32.7 g/dL (28.0-37.0); MCV 88.2 fL (80.0-100.0); RBC 3.36 mil/uL (4.20-5.00); RDW 15.8 % (10.5-14.5); WBC 5.6 thou/uL (4.0-11.0)
[2021-10-11 06:43] LABS: CALCIUM 8.5 mg/dL (8.5-10.1); CREATININE 0.7 mg/dL (0.6-1.0); MAGNESIUM 1.9 mg/dL (1.8-2.4); POTASSIUM 4.2 mmol/L (3.5-5.1)
[2021-10-11 07:29] VITALS: BP 127/86
[2021-10-11 10:51] VITALS: BP 127/86
[2021-10-11 10:56] VITALS: BP 133/87
[2021-10-11] MEDS ORDERED: BACID CAPLET1 EACH PO (14:15)
[2021-10-11] MEDS ORDERED: MEROPENEM1 GM IV (14:15)
[2021-10-11] MEDS ORDERED: PROTONIX 20 MG20 M1 PO (14:15)
[2021-10-11 15:35] VITALS: BP 143/92
[2021-10-11] MEDS ORDERED: FIBER POWDER368 GM PO (16:02)
--- NOTE | 2021-10-11 16:39 | NUR ---
Met with patient who admits from home independently. She is paraplegic. she can transfer herself to/from her . She has HH currently with [facility]. Sp with Dr Haro reports plan to change infusion at home. He wants her started on Meropenem 1gm q12. Updated hospitalist. Patient wanting to dc home if stable before snow store. Rec orders for dc. Faxed to [facility]. Rec confirmation of receipt. Patient with need for transport home/ [facility] for 1600 via stretcher van.
--- NOTE | 2021-10-11 17:31 | NUR ---
[address], SALINE LOCKED, ORANGE CAP IN PLACE; PT IS TO GO HOME WITH PICC IN PLACE FOR AT HOME IV INFUSIONS. LEFT FOOT REDRESSED WITH GAUZE AND KERLIX, SECURED WITH COBAN. R[place]HAWA CATHETER REMAINS IN PLACE, INTACT, DEPENDENT DRAINAGE, CLEAR YELLOW DRAINAGE. DISCHARGE INSTRUCTIONS GIVEN VERBALLY AND WITH PHYSICAL HAND OUT. ALL QUESTIONS ANSWERED TO SATISFACTION. PT BELONGINGS PACKED INTO BAG AND PLACED AT FOOT OF BED. ALL DRAWERS AND CLOSETS CHECKED FOR PATIENT BELONGINGS. PT WAITING FOR TRANSPORTATION TO HOME WITH HOME HEALTH.
--- NOTE | 2021-10-11 17:39 | NUR ---
TRANSPORTATION HERE FOR PATIENT. ALL DOCUMENTS AND BELONGINGS GIVEN TO TRANSPORT STAFF. NORMAL RISE AND FALL OF CHEST SEEN, NO RESPIRATORY DISTRESS NOTED AT THIS TIME. ALL NEEDS MET PRIOR TO DISCHARGE.
== END 2021-10-11 17:50 | disposition home health service (06) | DRG 871 ==
LOC: ER 01:31 → EROBS 04:06 → 4S 04:06
PROVIDERS: Internal Medicine; Student in an Organized Health Care Education/Training Program; ADMIT Hospitalist; ATTEND Hospitalist
PROC: 05HY33Z Insertion of Infusion Device into Upper Vein, Percutaneous Approach (ICD-10-PCS; principal; 2021-10-08)
DX: A41.52 Sepsis due to Pseudomonas (principal); N17.0 Acute kidney failure with tubular necrosis; G82.20 Paraplegia, unspecified; N39.0 Urinary tract infection, site not specified; G37.3 Acute transverse myelitis in demyelinating disease of central nervous system; R74.01 Elevation of levels of liver transaminase levels; Z20.822 Contact with and (suspected) exposure to COVID-19; E78.5 Hyperlipidemia, unspecified; G89.4 Chronic pain syndrome; G47.00 Insomnia, unspecified; F32.9 Major depressive disorder, single episode, unspecified; R65.20 Severe sepsis without septic shock; F17.210 Nicotine dependence, cigarettes, uncomplicated; F41.9 Anxiety disorder, unspecified; Z79.891 Long term (current) use of opiate analgesic; Z88.6 Allergy status to analgesic agent; Z88.8 Allergy status to other drugs, medicaments and biological substances; Z93.3 Colostomy status
CPT/HCPCS: 10100; 10195